=== PATIENT | female | born 1950 | race Caucasian/White ===

== ENCOUNTER 2025-04-14 08:22 | Outpatient (CLI) | payer OTHER, SELFPAY ==
--- NOTE | ~2025-04-14 | XR_ITS ---
Left Knee Technique: AP, lateral, and oblique views were obtained. Clinical History: Pain Findings: No fracture or dislocation is seen. Osseous alignment is anatomic. Joint spaces are preserv ed without degenerative or erosive change. Soft tissues are unremarkable. No joint effusion is seen. Impression: Unremarkable left knee radiographs. Reviewed, dictated and finalized at location . Impression: Unremarkable left knee radiographs.
--- OUTSIDE RECORDS SUMMARY | 2025-04-14 08:39 | XMS_ITS | Encounter Summary ---
Author Organization [facility] Address 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
--- OUTSIDE RECORDS SUMMARY | 2025-04-14 08:39 | XMS_ITS | Clinical Summary ---
Author Organization [facility] Address [address] [place] [address] Care Team Providers Care Estimator Printing Plate Making Name Role Phone Girish Breen MD Primary Care Provider [phone] Allergies Active Allergy Reactions Criticality Noted Date Comments Codeine Nausea and Vomiting Low 05/15/2012 Nabumetone Rash Low 05/15/2012 Medications AMITRIPTYLINE HCL (AMITRIPTYLINE ORAL)Indications:S creening for malignant neoplasm of the cervix,Routine gynecological examination,Screen ing for malignant neoplasm of the rectum Take by mouth. Active LISINOPRIL ORALIndications:Sc reening for malignant neoplasm of the cervix,Routine gynecological examination,Screen ing for malignant neoplasm of the rectum Take by mouth. Active METOPROLOL SUCCINATE ORALIndications:Sc reening for malignant neoplasm of the cervix,Routine gynecological examination,Screen ing for malignant neoplasm of the rectum Take by mouth. Active aspirin (VALENTINO) 81 mg Oral TabIndications:Scr eening for malignant neoplasm of the cervix,Routine gynecological examination,Screen ing for malignant neoplasm of the rectum Take by mouth. Active SUMATRIPTAN SUCCINATE (IMITREX ORAL)Indications:S creening for malignant neoplasm of the cervix,Routine gynecological examination,Screen ing for malignant neoplasm of the rectum Take by mouth. Active OTHERIndications:S creening for malignant neoplasm of the cervix,Routine gynecological examination,Screen ing for malignant neoplasm of the rectum Vit d, calcium Active methotrexate (RHEUMATREX) 2.5 mg Tablet 4 Active folic acid (FOLVITE) 1 mg tablet 4 Active traMADol (ULTRAM) 50 mg tablet 4 Active nortriptyline (PAMELOR) 25 mg capsule 4 Active simvastatin (ZOCOR) 40 mg tablet 4 Active ALPRAZolam (XANAX) 0.25 mg tablet 4 Active Active Problems Problem Noted Date Diagnosed Date Ruptured silicone breast implant 06/01/2014 Osteopenia 05/15/2012 Overview (05/15/2012): Finished 5 years of fosamax. 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 Gender Identity Not on file Sexual Orientation Not on file Occupation Industry Job Start Date Job End Date Not on file Not on file Not on file Not on file Last Filed Vital Signs Vital Sign Reading Time Taken Comments Blood Pressure 102/70 06/01/2014 9:02 AM CDT Pulse - - Temperature - - Respiratory Rate - - Oxygen Saturation - - Inhaled Oxygen Concentration - - Weight 51.3 kg (113 lb) 06/01/2014 9:02 AM CDT Height 144.8 cm (4' 9) 06/01/2014 9:02 AM CDT Body Mass Index 24.45 06/01/2014 9:02 AM CDT Plan of Treatment Health Maintenance Due Date Last Done Comments DTAP/TDAP/TD VACCINES (1 - Tdap) 1969 FIT-DNA Q 3 years 1995 Flex Sig/CT Colonography Q 5 years 1995 PNEUMOCOCCAL VACCINE 50+ YEA RS (1 of 1 - PCV) 2000 ZOSTER VACCINE (1 of 2) 2000 BREAST CANCER SCREENING 03/10/2015 03/10/20 14, 07/14/2013, 06/16/2013, Additional history exists OSTEOPOROSIS SCREENING 05/26/2015 05/26/2013, 2010 FIT/FOBT Q 1 year 06/01/2015 06/01/2014, , 05/15/2012 COLORECTAL SCREENING 01/18/2019 01/18/2009 Colorectal Cancer Screening 01/18/2019 RSV VACCINE (60+ or ) (1 - 1-dose 75+ series) 2025 INFLUENZA VACCINE (#1) 2025 Procedures Procedure Name Priority Date/Time Associated Diagnosis Comments POC OCCULT BLOOD, IMMUNO, QUAL, STOOL Routine 06/01/2014 10:16 AM CDT Screening for malignant neoplasm of the rectum MAMMO DIAGNOSTIC BILATERAL W OR WO CAD Routine 03/10/2014 Breast implant deflation, initial encounter Breast implant capsular contracture, initial encounter XR DEXA BONE DENSITY AXIAL 1 OR MORE SITES Routine 05/26/2013 Special screening for osteoporosis from Last 3 Months or Most Recently Relevant to Health Maintenance Results * POC OCCULT BLOOD, IMMUNO, QUAL, STOOL (06/01/2014 10:16 AM CDT) OCCULT BLOOD, IMMUNOASSAY STOOL1 POC Negative [facility] OCCULT BLOOD, IMMUNOASSAY STOOL2 POC [facility] OCCULT BLOOD, IMMUNOASSAY STOOL3 POC [facility] Stool specimen (specimen) 06/01/2014 10:16 AM CDT us Jessica Rowe MD POINT OF CARE TESTING Final Result [facility] * MAMMO DIGITAL DIAG BILAT (03/10/2014) Anatomical Region Laterality Modality Breast Bilateral Other us Paz Lala ENSEMBLE MEMBER MAMMO ORDERABLES Final Resu lt * (ABNORMAL) XR DEXA BONE DENSITY AXIAL 1 OR MORE SITES (05/26/2013) T-SCORE FEMUR (LEFT) [facility] T-SCORE FEMUR (RIGHT) [facility] T-SCORE FEMUR -0.8 >=-0.99 [facility] T-SCORE SPINE 0.0 >=-0.99 [facility] T-SCORE HIP (LEFT) [facility] T-SCORE HIP (RIGHT) [facility] T-SCORE HIP >=-0.99 [facility] Anatomical Region Laterality Modality Other 05/26/2013 us Jessica Rowe MD DIAGNOSTIC IMAGING ORDERABLE S Final Result from Last 3 Months or Most Recently Relevant to Health Maintenance Insurance [facility] O Care Teams Estimator Printing Plate Making Relationship Specialty Start Date End Date Girish Breen MD PCP - General 09/06/15
--- OUTSIDE RECORDS SUMMARY | 2025-04-14 08:39 | XMS_ITS | Encounter Summary ---
Author Organization [facility] Address 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
--- OUTSIDE RECORDS SUMMARY | 2025-04-14 08:39 | XMS_ITS | Encounter Summary ---
Author Organization [facility] Address 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
--- OUTSIDE RECORDS SUMMARY | 2025-04-14 08:39 | XMS_ITS | Encounter Summary ---
Author Organization [facility] Address 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
--- OUTSIDE RECORDS SUMMARY | 2025-04-14 08:39 | XMS_ITS | Patient Health Record ---
Author Organization [facility] Address [address] [place], [place] [id number] Care Team Providers Care Dairy Husbandry Worker Name Role Phone MEL RICHEY Unavailable [phone] Nadia Witt Unavailable Unavailable Reason For Referral No Information Medications Medication SIG (Take, Route, Frequency, Duration) Notes Start Date End Date Status trazodone hydrochloride 50 MG Oral Tablet ORAL trazodone hydrochloride 50 MG Oral TabletOriginal Medicationtrazodone hydrochloride 50 MG Oral Tablet *Reorder from [employer] for eRx and Interaction Alerts* 07/29/2020 Active pantoprazole 40 MG Delayed Release Oral Tablet [Protonix] ORAL pantoprazole 40 MG Delayed Release Oral Tablet [Protonix]Original Medicationpantoprazole 40 MG Delayed Release Oral Tablet [Protonix] *Reorder from [employer] for eRx and Interaction Alerts* 07/29/2020 Active sumatriptan 25 MG Oral Tablet [Imitrex] ORAL sumatriptan 25 MG Oral Tablet [Imitrex]Original Medicationsumatriptan 25 MG Oral Tablet [Imitrex] *Reorder from [employer] for eRx and Interaction Alerts* 07/29/2020 Active Simvastatin 40 MG Oral Tablet ORAL simvastatin 40 MG Oral TabletOriginal Medicationsimvastatin 40 MG Oral Tablet *Reorder from [employer] for eRx and Interaction Alerts* 07/29/2020 Active Metoprolol Tartrate 25 MG Oral Tablet ORAL metoprolol tartrate 25 MG Oral TabletOriginal Medicationmetoprolol tartrate 25 MG Oral Tablet *Reorder from [employer] for eRx and Interaction Alerts* 07/29/2020 Active Folic Acid 1 MG Oral Tablet ORAL folic acid 1 MG Oral TabletOriginal Medicationfolic acid 1 MG Oral Tablet *Reorder from [employer] for eRx and Interaction Alerts* 07/29/2020 Active Lisinopril 5 MG Oral Tablet ORAL lisinopril 5 MG Oral TabletOriginal Medicationlisinopril 5 MG Oral Tablet *Reorder from [facility] for eRx and Interaction Alerts* 07/29/2020 Active Aspirin 81 MG Oral aspirin 81 MG Ch ewable TabletOriginal Medicationaspirin 81 MG Chewable Tablet 07/29/2020 Active Plan Of Treatment No Information Insurance Providers Payer Name Payer Address Payer Phone Subscriber Number Group Number Insured Name Patient Relationship to Insured Coverage Start Date Coverage End Date [employer] [address] [place] [address] [id number] YOKO MÁRQUEZ Self - patient is the insured
--- OUTSIDE RECORDS SUMMARY | 2025-04-14 08:39 | XMS_ITS | Encounter Summary ---
Author Organization [facility] Address 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
--- OUTSIDE RECORDS SUMMARY | 2025-04-14 08:40 | XMS_ITS | Encounter Summary ---
Author Organization [facility] Address 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
--- OUTSIDE RECORDS SUMMARY | 2025-04-14 08:40 | XMS_ITS | Encounter Summary ---
Author Organization [facility] Address 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
--- OUTSIDE RECORDS SUMMARY | 2025-04-14 08:40 | XMS_ITS | Encounter Summary ---
Author Organization [facility] Address [address] [place] [address] Care Team Providers Care Interior Assemblies Developer Prover Name Role Phone Girish Breen MD Primary Care Provider [phone] Encounter Details Date Type Department Care Team (Late st Contact Info) Description 04/22/1999 Outpatient Historical [facility] Salvador Padilla MD [address] [place] [address] [place] [id number] Internal hemorrhoids without mention of complication (Primary Dx) Social History Tobacco Use Types Packs/Day Years Used Date Smoking Tobacco: Never Assessed Comments Unknown Sex and Gender Information Value Date Recorded Sex Assigned at Not on file 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
--- OUTSIDE RECORDS SUMMARY | 2025-04-14 08:40 | XMS_ITS | Encounter Summary ---
Author Organization [facility] Address 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
--- OUTSIDE RECORDS SUMMARY | 2025-04-14 08:40 | XMS_ITS | Encounter Summary ---
Author Organization [facility] Address [address] [place] [address] Care Team Providers Care Business Ethics Professor Name Role Phone Girish Breen MD Primary Care Provider [phone] Encounter Details Date Type Department Care Team (Latest Contact Info) Description 09/05/2000 Outpatient Historical HIS [facility] RAFAEL Padilla, Salvador Harry MD [address] [place] [address] Persistent vomiting (Primary Dx) Social History Tobacco Use Types Packs/Day Years Used Date Smoking Tobacco: Never Assessed Comments Unknown Sex and Gender Information Value Date Recorded Sex Assigned at Not on file 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
--- OUTSIDE RECORDS SUMMARY | 2025-04-14 08:40 | XMS_ITS | Encounter Summary ---
Author Organization [facility] Address 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
--- OUTSIDE RECORDS SUMMARY | 2025-04-14 08:40 | XMS_ITS | Clinical Summary ---
Author Organization [facility] Address [address] [address] Care Team Providers [facility] [employer] Name Role Phone Toño Vivas MD Primary Care Provider [phone] Allergies Active Allergy Reactions Criticality Noted Date Comments Codeine Nausea only,Vomiting,Nausea & Vomiting Low 05/15/2012 Reaction: Nausea, Vomiting, Infliximab Rash High Reaction: Rash, Nabumetone Rash Reaction: Rash, Tramadol Headache Low 04/24/2017 Medications aspirin (BABY ASPIRIN) 81 mg chewable tablet chew 1 tablet (81MG) by oral route every day 0 3 Active folic acid (FOLVITE) 1 mg tablet take 1 tablet by oral route every day 30 0 4 Active vitamin B complex with vitamin C tabletIndications :Vitamin Deficiency Prevention Take 1 tablet by mouth daily Active [id number]-[id number]-zinc-co a-[id number]-[id number] 600 mg calcium- 800 unit-40 mg tablet,chewable Take by mouth Active cholecalciferol (VITAMIN D-3) 3,000 unit tablet Take 1 tablet (3,000 Units total) by mouth daily Active multivitamin tabletIndications :Vitamin Deficiency Prevention Take 1 tablet by mouth Active rimegepant (Nurtec ODT) tablet,disintegra ting Take 1 tablet (75 mg total) by mouth daily as needed (take as needed for COOL) 4 tablet 3 Active atorvastatin (LIPITOR) 40 mg tabletIndications :Coronary artery disease of [place] artery of [place] heart with stable angina pectoris TAKE 1 TABLET BY MOUTH DAILY (TO REPLACE SIMVASTATIN) 90 tablet [address] (PROTONIX) 40 mg EC tabletIndications :Gastroesophageal reflux disease without esophagitis Take 1 tablet (40 mg total) by mouth daily 90 tablet 2 4 Active metoprolol XL (TOPROL-XL) 25 mg extended release tabletIndications :Essential hypertension TAKE 1 TABLET (25 MG TOTAL) BY MOUTH DAILY. 90 tablet 2 4 Active nitroglycerin (NITROSTAT) 0.4 mg SL tabletIndications :Atherosclerosis of coronary artery of [place] heart without angina pectoris, unspecified vessel or lesion type 1 tablet under the tongue every 5 minutes as needed for chest pain on third dose report to ER 25 tablet 3 5 Active lisinopriL (PRINIVIL,ZESTRIL ) 5 mg tabletIndications :Essential hypertension Take 1 tablet (5 mg total) by mouth daily 90 tablet 3 5 Active Active Problems Problem Noted Date Diagnosed Date Asymptomatic reticular veins 1 mm to 3 mm in wilda meter 09/18/2023 Assessment & Plan (09/18/2023 9:09 AM SKEIN SPOOLER): Small clusters of reticular veins near the ankles, had 1 episode of bleeding a couple months ago. Discussed management of reticular veins which is primarily sclerotherapy, I have recommended surveillance, if she continues to have episodes of bleeding would recommend referral to Dr. James for sclerotherapy. Can follow-up as needed. History of COVID-19 11/02/2022 History of rheumatoid arthritis 05/08/2021 Coronary artery disease of n ative artery of [place] heart with stable angina pectoris ([facility]) 09/24/2019 Body mass index (BMI) 22.0-22.9, adult 7 Assessment & Plan (05/21/2017 8:10 AM CDT): BMI Follow-up includes: nutrition counseling, exercise counseling and education provided. Medicare annual wellness visit, subsequent 05/21 Assessment & Plan (03/25/2018 10:58 AM CDT): A Medicare Annual Wellness Visit (AWV) was done today as well. The patient filled out a depression screen, functional assessment screen, health risk assessment, and other physicians list. All the elements of this exam were completed as outlined by CMS. Please note that the documentation of this is split between paper documentation and this electronic record. Assessment & Plan (05/21/2017 8:20 AM CDT): A Medicare Annual Wellness Visit (AWV) was done today as well. The patient filled out a depression screen, functional assessment screen, health risk assessment, and other physicians list. All the elements of this exam were completed as outlined by CMS. Please note that the documentation of this is split between paper documentation and this electronic record. Essential hypertension, benign 01/30/2014 Overview (09/18/2023): Assessment & Plan (09/18/2023 9:09 AM SKEIN SPOOLER): Stable continue lisinopril 5 mg. Assessment & Plan (05/21/2017 8:36 AM CDT): Hypertension is improving with treatment. Dietary sodium restriction. Blood pressure will be reassessed in 3 months. Osteoporosis 01/30/2014 Overview (12/21/2016): OSTEOPOROSIS NOS Assessment & Plan (05/21/2017 8:51 AM CDT): Continue follow at this time no new issues Hyperlipidemia LDL goal <70 01/30/2014 Overview (09/18/2023): Assessment & Plan (09/18/2023 9:10 AM SKEIN SPOOLER): Stable continue Lipitor 40 mg. Assessment & Plan (03/25/2018 11:10 AM CDT): Recheck a fasting lipid profile today Assessment & Plan (05/21/2017 8:36 AM CDT): We will recheck a fasting lipid profile today continues on simvastatin Resolved Problems Problem Noted Date Diagnosed Date Resolved Date MCKEE (dyspnea on exertion) 04/06/2024 Atypical chest pain 02/15/2023 07/24/20 Palpitations 11/02/2022 01/27/2025 Bone disorder 05/08/2021 05/08/2021 Bilateral lower extremity edema 09/24/2019 07/24/2023 History of GI bleed 05/13/2019 07/24/20 23 BMI 21.0-21.9, adult 03/25/2018 021 Assessment & Plan (03/25/2018 10:54 AM CDT): BMI Follow-up includes: nutrition counseling, exercise counseling and education provided. Patient encounter status 05/18/201606/2021 Overview (12/20/2016): Annual physical exam Gastric ulcer 05/20/2014 07/24/2023 Overview (12/20/2016): Stomach ulcer Chemical colitis 05/20/2014 10/26/2020 Overview (12/20/2016): Chemically-induced colitis Arthritis 05/20/2014 01/27/2024 Overview (12/20/2016): Arthritis Cardiac disease 05/20/2014 10/26/2020 Overview (12/22/2016): Heart disease Atherosclerosis of coronary artery 01/30/2014 07/24/2023 Overview (12/20/2016): CAD (coronary artery disease) Assessment & Plan (03/25/2018 11:10 AM CDT): No chest pain currently continues to follow Dr. Rosaura Meneses, We will follow at this point Assessment & Plan (05/21/2017 8:35 AM CDT): No current chest pain she is doing very well at this time we can follow her Migraine 01/30/2014 07/24/2023 Overview (12/21/2016): Migraine Disorder of joint 01/06/2014 10/26/2020 Overview (12/21/2016): Arthropathy Psoriasis 06/05/2012 01/27/2024 Overview (12/20/2016): Psoriasis Drug indicated 06/05/2012 10/26/2020 Overview (12/20/2016): LONG-TERM USE MEDS NEC Encounters Date Type Department Care Team Description 02/05/2025 ACO Clinical Pharmacist [facility] Accountable Care Organization [address] [place] [id number] Sydney Ambriz RPh 01/27/2025 9:00 AM CDT Lab [facility] Medical Office [address] [place] [address] [address] [place] [address] Hyperlipidemia LDL goal <70 01/27/2025 8:00 AM CDT Office Visit [facility] Medical [facility] Family Medicine at [address] [place] [address] Toño Vivas MD Medicare annual wellness visit, subsequent (Primary Dx); Osteopenia of lumbar spine; Hyperlipidemia LDL goal <70; Essential hypertension, benign; Breast cancer screening by mammogram; Gastroesophageal reflux disease, unspecified whether esophagitis present; Coronary artery disease of [place] artery of [place] heart with stable angina pectoris ([facility]) (HCC); History of rheumatoid arthritis; Chronic insomnia 01/27/2025 Results Follow-Up [facility] Family Medicine at [address] [place] [address] Antonella Villanueva PA Comprehensive metabolic panel, CBC with auto differential, Differential, auto, eGFR from Last 3 Months Immunizations Immunization Administration Dates Next Due Influenza, Quadrivalent, Hig h Dose, Preservative Free, Intrr 06/13/2023,06/27/2021,05/16/2020 Influenza, Quadrivalent, Spl it, Preservative Free, Intramuscular 08/18/2015 Influenza, Trivalent, High D ose, Split, Preservative Free, Intramuscular 06/09/2024,06/27/2022,07/30/2019 Influenza, Trivalent, IM (MDV) 06/17/2013,2010 Influenza, Trivalent, Recomb inant, Egg Free, Preservative Free, Antibiotic Free, IM (FLUBLOK) 08/17/2014 Influenza, Unspecified 06/16/2022,2021(Deferred: Patient decision),06/16/2017(Deferred: Patient decision) Pfizer SARS-CoV-2 Monovalent Vaccination (12+ Yrs) PURPLE 12/20/2020,11/28/2020 Pneumococcal Conjugate PCV 13 05/21/2017 Pneumococcal Polysaccharide PPV23 05/13/2019 Td, adsorbed 09/16/2009 Surgical History Surgery Date Site/Laterality Comments BREAST BIOPSY Bilateral breast biopsy OTHER SURGICAL HISTORY D&C TOTAL ABDOMINAL HYSTERECTOMY Hysterectomy, total LAPAROSCOPICALLY ASSISTED VAGINAL HYSTERECTOMY lavh OTHER SURGICAL HISTORY silicone implants removed OTHER SURGICAL HISTORY salene implants removed AUGMENTATION MAMMAPLASTY 1983 and 1999 removed 2013 Silicone ruptured in left breast Medical History Medical History Date Comments Cardiovascular disease Coronary artery disease Hx Other Medical Headache, migra ine Hypertension Hypertension Essential (primary) hypertension Hypertension - (Added by TW Conv) Fibrocystic breast Anxiety Hyperlipidemia Family History Medical History Relation Name Comments Colon cancer Father Cancer, colon; Diabetes Father Heart attack Father Heart disease Father Stroke Father Stroke; Cause o f : Stroke Aneurysm Mother Breast cancer Mother Cancer, breast ; Hyperlipidemia Sister Migue Hypertension Sister Migue Endometrial cancer Neg Hx Ovarian cancer Neg Hx Thyroid cancer Neg Hx Relation Name Status Comments Father (Age 85) Mother (Age 54) Sister Migue Alive Social History Tobacco Use Types Packs/Day Years Used Date Smoking Tobacco: Never Smokeless Tobacco: Never Tobacco Cessation:Counseling Given: Not Answered Alcohol Use Standard Drinks/Week Comments Yes 1 (1 standard drink = 0.6 oz pur e alcohol) one glass monthly AUDIT-C Answer Date Recorded Q1: How often do you have a drink containing alc ohol? Monthly or less 04/24/2022 Q2: How many drinks containi ng alcohol do you have on a typical day when you are drinking? 1 or 2 04/24/2022 Q3: How often do you have si x or more drinks on one occasion? Never 04/24/2022 PHQ-2 Answer Date Recorded PHQ-2 Total Score (If total score is 3 or more points, staff should administer the PHQ-9) 0 01/27/2025 Comments No Sex and Gender Information Value Date Recorded Sex Assigned at Not on file Legal Sex Female 1:54 AM SKEIN SPOOLER Gender Identity Not on file Sexual Orientation Not on file Obstetrics History Para Term AB IAB SAB Ectopic Multiple Livin g Live Births 1 1 1 Date Outcome GA Total Labor Labor/2nd/3rd Weight Sex Type Anes PTL Kira A1 A5 Name Clin Term Last Filed Vital Signs Vital Sign Reading Time Taken Comments Blood Pressure 130/82 01/27/2025 8:54 AM CDT Pulse 59 01/27/2025 8:07 AM CDT Temperature 36.8 C (98.3 F) 01/27/2025 8:07 AM CDT Respiratory Rate 16 08/30/2023 9:31 AM SKEIN SPOOLER Oxygen Saturation 96% 01/27/2025 8:07 AM CDT Inhaled Oxygen Concentration - - Weight 49.4 kg (109 lb) 01/27/2025 8:07 AM CDT Height 142.2 cm (4' 8) 01/27/2025 8:07 AM CDT Body Mass Index 24.44 01/27/2025 8:07 AM CDT Plan of Treatment Health Maintenance Due Date Last Done Comments Hepatitis B Screening 1968 Zoster Vaccine (1 of 2) 2000 DTaP/Tdap/Td Vaccine (1 - Tdap) 09/17/2009 0 Covid-19 Vaccine (3 - 2023-2 5 season) 2024 12/20/2020, 11/28/2020 Osteoporosis Screening-Bone Density Scan 07/20/2024 07/20/2022, 05/26/2020, 05/26/2013, Additional history exists Influenza Vaccine (#1) 2025 , 06/13/2023, 06/27/2022, Additional history exists Depression Screening 01/27/2026 01/27/2025, 01/27/2024, 10/31/2022, Additional history exists Fall Risk Assessment 01/27/2026 01/27/2025, 01/27/2024, 10/31/2022, Additional history exists Well Visit 65+ 01/27/2026 01/27/2025, 01/14, 04/24/2022, Additional history exists Colon Cancer Screening-Colonoscopy 01/29/2029 01/29/2019, 07/28/2014, 05/21/2014 Hepatitis C Screening Completed 03/22/2016 Colon Cancer Screening-CT Colonography Discontinued 01/29/2019, 07/28/2014, 05/21/2014 Colon Cancer Screening-DNA Stool Discontinued 01/29/2019, 07/28/2014, 05/21/2014 Colon Cancer Screening-FIT Discontinued 01/29, 07/28/2014, 05/21/2014 Colon Cancer Screening-Sigmoidoscopy Discontinued 01/29/2019, 07/28/2014, 05/21/2014 Pneumococcal vaccine 65+ Completed 05/13/2019, 01/2017 Breast Cancer Screening-Mammogram Discontinued 06/04/2023, 05/31/2022, 05/30/2021, Additional history exists Procedures Procedure Name Priority Date/Time Associated Diagnosis Comments EGFR Routine 01/27/2025 9:07 AM CDT Hyperlipidemia LDL goal <70 DIFFERENTIAL AUTO Routine 01/27/2025 9:0 7 AM CDT Hyperlipidemia LDL goal <70 CBC WITH AUTO DIFFERENTIAL Routine 01/27/2025 9:07 AM CDT Hyperlipidemia LDL goal <70 COMPREHENSIVE METABOLIC PANEL Routine 01/27/2025 9:07 AM CDT Hyperlipidemia LDL goal <70 SCREENING MAMMOGRAM BILATERAL W DENIS Schedule Routine, Read Routine (OP Routine) 06/04/2023 12:09 PM CDT Screening mammogram, encounter for DEXA AXIAL SKELETON BONE DENSITY 1 OR MORE SITES Schedule Routine, Read Routine (OP Routine) 07/20/2022 10:08 AM CDT Osteoporosis, unspecified osteoporosis type, unspecified pathological fracture presence COLONOSCOPY Routine 01/29/2019 HEPATITIS C ANTIBODY Routine 03/22/2016 9:00 AM CDT from Last 3 Months or Most Recently Relevant to Health Maintenance Results * eGFR (01/27/2025 9:07 AM CDT) [facility] eGFR 82 >=60 mL/min/1. 73 m2 Comment: Interpretive Data Reference Interval Normal >/= 90 mL/min/1.73m2 Mildly decreased* 60 - 89 mL/min/1.73m2 Mildly to moderately decreased 45 - 59 mL/min/1.73m2 Moderately to severely decreased 30 - 44 mL/min/1.73m2 Severely decreased 15 - 29 mL/min/1.73m2 Kidney Failure < 15 mL/min/1.73m2 *Relative to young adult level Estimated glomerular filtration rate is determined by the 2020 CKD-EPI equation recommended by the National Kidney Foundation (A Unifying Approach to GFR Estimation: Recommendations of the NKF-ASK Task Force on Reassessing the Inclusion of Race in Diagnosing Kidney Disease, JASN 2020). The CKD-EPI equation should not be used for patients with unstable renal function and has not been validated in children and those over 70. Current interpretive data was last reviewed 2021. Blood 01/27/2025 9:07 AM CDT 01/27/2025 12:19 PM CDT Toño Vivas MD LAB BLOOD ORDERABLES Final Re sult [facility] [address] [facility] Department [place] [address] * Differential, auto (01/27/2025 9:07 AM CDT) [facility] Neutrophil abs 2.96 1.50 - 6.50 K/cumm Imm gran abs 0.01 0.00 - 0.10 K/cumm [facility] Lymphocyte abs 1.47 0.80 - 3.30 K/cumm [facility] Monocyte abs 0.73 0.20 - 0.80 K/cumm [facility] Eosinophil abs 0.14 0.00 - 0.50 K/cumm [facility] Basophil abs 0.06 0.00 - 0.10 K/cumm [facility] Neutrophil pct 55.1 % [facility] Comment: Interpretive Data Percent cell count reference ranges are not reported, since discordance with absolute values may lead to misinterpretation of CBC data. Current Interpretive Data was last revised on 2017. Imm gran pct 0.2 % [facility] Comment: Interpretive Data Percent cell count reference ranges are not reported, since discordance with absolute values may lead to misinterpretation of CBC data. Current Interpretive Data was last revised on 2017. Lymphocyte pct 27.4 % [facility] Comment: Interpretive Data Percent cell count reference ranges are not reported, since discordance with absolute values may lead to misinterpretation of CBC data. Current Interpretive Data was last revised on 2017. Monocyte pct 13.6 % [facility] Comment: Interpretive Data Percent cell count reference ranges are not reported, since discordance with absolute values may lead to misinterpretation of CBC data. Current Interpretive Data was last revised on 2017. Eosinophil pct 2.6 % [facility] Comment: Interpretive Data Percent cell count reference ranges are not reported, since discordance with absolute values may lead to misinterpretation of CBC data. Current Interpretive Data was last revised on 2017. Basophil pct 1.1 % [facility] Comment: Interpretive Data Percent cell count reference ranges are not reported, since discordance with absolute values may lead to misinterpretation of CBC data. Current Interpretive Data was last revised on 2017. Blood 01/27/2025 9:07 AM CDT 01/27/2025 12:19 PM CDT us Toño Vivas MD LAB BLOOD ORDERABLES Final Re sult [facility] [address] [facility] Department [place] [address] * (ABNORMAL) CBC with auto differential (01/27/2025 9:07 AM CDT) WBC 5.37 3.80 - 9.90 K/cumm Hgb 14.2 11.9 - 15.5 g/dL [facility] Hct 44.0 35.6 - 45.5 % [facility] Plt 212 150 - 400 K/cumm [facility] MPV 10.2 9.1 - 12.3 fL [facility] RBC 4.47 3.90 - 5.20 M/cumm [facility] MCV 98.4(H) 81.3 - 96.4 fL [facility] MCH 31.8 27.1 - 33.3 pg [facility] MCHC 32.3 32.3 - 35.7 g/dL [facility] RDW CV 12.8 11.1 - 14.9 % [facility] RDW SD 46.0 35.7 - 48.1 fL [facility] NRBC abs 0.00 0.00 - 0.01 K/cumm [facility] Blood 01/27/2025 9:07 AM CDT 01/27/2025 12:19 PM CDT Toño Vivas MD LAB BLOOD ORDERABLES Final Re sult [facility] [address] [facility] Department [place] [address] * Comprehensive metabolic panel (01/27/2025 9:07 AM CDT) Sodium 142 135 - 145 mmol/L Potassium, pl 4.4 3.3 - 4.9 mmol/L [facility] Chloride 105 97 - 110 mmol/L [facility] CO2 30 22 - 32 mmol/L [facility] Anion gap 7 2 - 15 mmol/L [facility] BUN 20 6 - 25 mg/dL [facility] Creatinine 0.76 0.60 - 1.10 mg/dL [facility] Glucose 99 70 - 199 mg/dL [facility] Comment: Interpretive Data Fasting glucose >/= 126 mg/dl is diagnostic for diabetes. Fasting is defined as no caloric intake for at least 8 hours. Fasting glucose between 100 mg/dl to 125 mg/dl is diagnostic of prediabetes. In a patient with classic symptoms of hyperglycemia or hyperglycemic crisis, a random glucose >/= 200 mg/dl is diagnostic for diabetes. In the absence of unequivocal hyperglycemia, results should be confirmed by repeat testing. The classification and Diagnosis of Diabetes Diabetes Care 202; 46: S19-S40. Current interpretive data was last revised 2022. Calcium 9.6 8.5 - 10.3 mg/dL [facility] Bilirubin, total 0.5 0.1 - 1.2 mg/dL [facility] Protein, pl 6.9 6.5 - 8.5 g/dL [facility] Albumin 4.1 3.5 - 5.0 g/dL [facility] Alk phos 77 40 - 130 Units/L [facility] ALT 20 7 - 45 Units/L [facility] AST 28 10 - 45 Units/L [facility] Blood 01/27/2025 9:07 AM CDT 01/27/2025 12:19 PM CDT Toño Vivas MD LAB BLOOD ORDERABLES Final Re sult [facility] [address] [facility] Department [place] [address] * Screening Mammogram Bilateral W Denis (06/04/2023 12:09 PM CDT) Anatomical Region Laterality Modality Breast Bilateral Mammography 06/04/2023 1:17 PM CDT Impressions 06/04/2023 1:17 PM CDT No evidence of malignancy in either breast. FINAL ASSESSMENT: BI-RADS Category 2: Benign. RECOMMENDATION: Recommend return for annual screening mammogram in 12 months. Electronically signed by: Muna Ramirez M.D. Narrative 06/04/2023 1:17 PM CDT EXAMINATION: BILATERAL SCREENING MAMMOGRAM COMPARISON: Multiple prior studies, most recently 05/31/2022 and dating back to 07/14/2013. TECHNIQUE: Full-field 2D and digital breast tomosynthesis (DBT) images were obtained. CAD was utilized. BREAST PARENCHYMAL COMPOSITION: The breasts are extremely dense, which lowers the sensitivity of mammography. FINDINGS: There is no suspicious mass, calcification, or distortion in either breast. There has been no significant interval change from the prior study. Bilateral stable diffuse benign calcifications are seen. Self Screening Mammogram IMG MAMMO PROCEDURES Fi nal Result * Dexa Axial Skeleton Bone Density 1 or 2 Site (07/20/2022 10:08 AM CDT) Anatomical Region Laterality Modality Body N/A Other 07/20/2022 10:1 3 AM CDT Impressions 07/20/2022 10:13 AM CDT Bone mineral density of the spine falls within normal range, bone mineral density of the left hip falls within osteopenia range. In comparison to previous examination there is a decrease bone mineral density of the spine and increased bone mineral density of the left hip. Electronically signed by: Daniel Jean 07/20/2022 10:13 AM CDT Examination: Bone densitometry of the lumbar spine and the left hip Order Date: 07/20/2022 10:00 AM History: Osteoporosis screening. Postmenopausal Comparison: 05/26/2020 Findings: The bone densitometry of the L1-L4 region, the left femoral neck and the total left hip was calculated using dual-energy x-ray absorptiometry. Summary: Bone mineral density (BMD) of the lumbar spine (L1-4): T-score -0.6; 94% of normal Bone mineral density (BMD) of the total left hip: T-score -1.3; 83% of normal Bone mineral density (BMD) of the left femoral neck: T-score -2.3; 70% of normal Bone mineral density of the spine falls within normal range, bone mineral density of the left hip falls within osteopenia range. In comparison to previous examination there is -1.8% change in spine findings suggestive of decrease bone mineral density and 0.2% change in left hip findings suggestive of increased bone mineral density. Procedure Note Muna Ramirez MD - 07/20/2022 Examination: Bone densitometry of the lumbar spine and the left hip Order Date: 07/20/2022 10:00 AM History: Osteoporosis screening. Postmenopausal Comparison: 05/26/2020 Findings: The bone densitometry of the L1-L4 region, the left femoral neck and the total left hip was calculated using dual-energy x-ray absorptiometry. Summary: Bone mineral density (BMD) of the lumbar spine (L1-4): T-score -0.6; 94% of normal Bone mineral density (BMD) of the total left hip: T-score -1.3; 83% of normal Bone mineral density (BMD) of the left femoral neck: T-score -2.3; 70% of normal Bone mineral density of the spine falls within normal range, bone mineral density of the left hip falls within osteopenia range. In comparison to previous examination there is -1.8% change in spine findings suggestive of decrease bone mineral density and 0.2% change in left hip findings suggestive of increased bone mineral density. IMPRESSION: Bone mineral density of the spine falls within normal range, bone mineral density of the left hip falls within osteopenia range. In comparison to previous examination there is a decrease bone mineral density of the spine and increased bone mineral density of the left hip. Electronically signed by: Muna Ramirez M.D. Nadia Witt MD IMG DXA PROCEDURES Final Res ult * Colonoscopy (01/29/2019) Anatomical Region Laterality Modality Other Historical Provider MD ENDOSCOPY PROCEDURES Desirae l Result * Hepatitis C antibody (03/22/2016 9:00 AM CDT) SIGNAL TO CUT-OFF 0.03 <1.00 [facility]OR[facility] RESULTS Comment: [facility] [employer] [facility] [address] [place] [address] Director: RACHEL LEONE DO,MPH Hep C Ab NON-REACT ELEANOR NON-REACT ELEANOR [facility] HISTORICAL RESULTS 03/22/2016 9:00 AM CDT Dede SALAZAR LAB MICROBIOLOGY - GENERAL ORDERABLES Final Result [facility] HISTORICAL RESULTS from Last 3 Months or Most Recently Relevant to Health Maintenance Insurance [employer] ADV[employer]AGE CHOICE PPO [employer] ADV[employer] CHOICE PPO [employer] CHOICE PPO Care Teams [employer] Relationship Specialty Start Date End Date Toño Vivas MD PCP - General Family Medicine 07/24/23
--- OUTSIDE RECORDS SUMMARY | 2025-04-14 08:40 | XMS_ITS | Encounter Summary ---
Author Organization [facility] Address [address] [place] [address] Care Team Providers Care Building Construction Inspector Name Role Phone Girish Breen MD Primary Care Provider [phone] Encounter Details Date Type Department Care Team (Latest Contact Info) Description 01/05/2000 Outpatient Historical HIS [facility] RAFAEL Herbert, [place] [address] [facility] [place] [id number] Lump or mass in breast (Primary Dx) Social History Tobacco Use Types Packs/Day Years Used Date Smoking Tobacco: Never Assessed Comments Unknown Sex and Gender Information Value Date Recorded Sex Assigned at Not on file Legal Sex Female 4:38 AM PIER HAND Gender Identity Not on file Sexual Orientation Not on file documented as of this encounter Plan of Treatment Not on file documented as of this encounter Visit Diagnoses Diagnosis Lump or mass in breast- Primary documented in this encounter Care Teams Building Construction Inspector Relationship Specialty Start Date End Date Girish Breen MD PCP - General 09/06/15 documented as of this encounter
--- OUTSIDE RECORDS SUMMARY | 2025-04-14 08:40 | XMS_ITS | Referral Summary ---
Author Organization [facility] Address [address] [facility] [place] [address] Care Team Providers Care Frame Hand Name Role Phone Toño Vivas MD Primary Care Provider [phone] Encounters Date Type Department Care Team Description 02/05/2025 ACO Clinical Pharmacist [facility] Care Organization [address] [place] [address] [place] Ambriz [facility] 01/27/2025 Results Follow-Up [facility] at [address] [place] [address] Antonella Villanueva PA Comprehensive metabolic panel, CBC with auto differential, Differential, auto, eGFR 01/27/2025 9:[address] [facility] Medical Office [address]ld[address] [place] [address] [address] [place] [address] Hyperlipidemia LDL goal <70 01/27/2025 8:00 AM CDT Office Visit [facility] at [address] [place] [address] Toño Vivas MD Medicare annual wellness visit, subsequent (Primary Dx); Osteopenia of lumbar spine; Hyperlipidemia LDL goal <70; Essential hypertension, benign; Breast cancer screening by mammogram; Gastroesophageal reflux disease, unspecified whether esophagitis present; Coronary artery disease of [place] artery of [place] heart with stable angina pectoris (CMS/HCC) (HCC); History of rheumatoid arthritis; Chronic insomnia from Last 3 Months Allergies Active Allergy Reactions Criticality Noted Date [...] Take 1 tablet by mouth daily Active Ny-W1-tvo-zinc-co q-aopx-nyeki 600 mg calcium- 800 unit-40 mg tablet,chewable [...] 40 mg tabletIndications :Coronary artery disease of [place] artery of [place] heart with stable angina pectoris TAKE 1 [...] SL tabletIndications :Atherosclerosis of coronary artery of [place] heart without angina pectoris, unspecified vessel or [...] 09/18/2023 Assessment & Plan (09/18/2023 9:09 AM SHIPYARD SUPERVISOR): Small clusters of reticular veins near the [...] artery disease of n ative artery of [place] heart with stable angina pectoris ([facility]) 09/24/2019 Body mass index (BMI) 22.0-22.9, adult [...] this exam were completed as outlined by [facility]. Please note that the documentation of this is split between paper documentation and this electronic record. Assessment & Plan (05/21/2017 8:20 AM CDT): A Medicare Annual Wellness Visit (AWV) was done today as well. The patient filled out a depression screen, functional assessment screen, health risk assessment, and other physicians list. All the elements of this exam were completed as outlined by [facility]. Please note that the documentation of this is split between paper documentation and this electronic record. Essential hypertension, benign 01/30/2014 Overview (09/18/2023): Assessment & Plan (09/18/2023 9:09 AM SHIPYARD SUPERVISOR): Stable continue lisinopril 5 mg. Assessment & Plan (05/21/2017 8:36 AM CDT): Hypertension is improving with treatment. Dietary sodium restriction. Blood pressure will be reassessed in 3 months. Osteoporosis 01/30/2014 Overview (12/21/2016): OSTEOPOROSIS NOS Assessment & Plan (05/21/2017 8:51 AM CDT): Continue follow at this time no new issues Hyperlipidemia LDL goal <70 01/30/2014 Overview (09/18/2023): Assessment & Plan (09/18/2023 9:10 AM SHIPYARD SUPERVISOR): Stable continue Lipitor 40 mg. Assessment & Plan (03/25/2018 11:10 AM CDT): Recheck a fasting lipid profile today Assessment & Plan (05/21/2017 8:36 AM CDT): We will recheck a fasting lipid profile today continues on simvastatin Resolved Problems Problem Noted Date Diagnosed Date Resolved Date MCKEE (dyspnea on exertion) 04/06/2024 Atypical chest pain 02/15/2023 07/24/20 23 Palpitations 11/02/2022 01/27/2025 Bone disorder 05/08/2021 05/08/2021 [...] 10/26/2020 Overview (12/20/2016): LONG-TERM USE MEDS NEC Immunizations Immunization Administration Dates Next Due Influenza, [...] Pneumococcal Polysaccharide PPV23 05/13/2019 Td, adsorbed 09/16/2009 Social History Tobacco Use Types Packs/Day Years [...] on file Legal Sex Female 1:54 AM SHIPYARD SUPERVISOR Gender Identity Not on file Sexual Orientation Not on file Last Filed Vital Signs Vital Sign Reading Time Taken Comments Blood Pressure 130/82 01/27/2025 8:54 AM CDT Pulse 59 01/27/2025 8:07 AM CDT Temperature 36.8 C (98.3 F) 01/27/2025 8:07 AM CDT Respiratory Rate 16 08/30/2023 9:31 AM SHIPYARD SUPERVISOR Oxygen Saturation 96% 01/27/2025 8:07 AM CDT Inhaled Oxygen Concentration - - Weight 49.4 kg (109 lb) 01/27/2025 8:07 AM CDT Height 142.2 cm (4' 8) 01/27/2025 8:07 AM CDT Body Mass Index 24.44 01/27/2025 8:07 AM CDT Plan of Treatment Not on file Procedures Procedure Name Priority Date/Time Associated Diagnosis [...] Results * eGFR (01/27/2025 9:07 AM CDT) eGFR 82 >=60 mL/min/1. 73 m2 Comment: [...] of Race in Diagnosing Kidney Disease, JASN 202). The CKD-EPI equation should not be used for patients with unstable renal function and has not been validated in children and those over 70. Current interpretive data was last reviewed 2021. Blood 01/27/2025 9:07 AM CDT 01/27/2025 12:19 PM CDT Toño Vivas MD LAB BLOOD ORDERABLES Final Re sult [facility] [address] [facility] Department of Laboratories [place], [place] [id number] * Differential, auto (01/27/2025 9:07 AM CDT) Pathologist [facility] Neutrophil abs 2.96 1.50 - 6.50 K/cumm Imm gran abs 0.01 0.00 - 0.10 K/cumm [facility] Lymphocyte abs 1.47 0.80 - 3.30 K/cumm [facility] Monocyte abs 0.73 0.20 - 0.80 K/cumm [facility] Eosinophil abs 0.14 0.00 - 0.50 K/cumm [facility] Basophil abs 0.06 0.00 - 0.10 K/cumm [facility] Neutrophil pct 55.1 % [facility] Comment: Interpretive Data Percent cell count reference ranges are not reported, since discordance with absolute values may lead to misinterpretation of CBC data. Current Interpretive Data was last revised on 2017. Imm gran pct 0.2 % [facility] Comment: Interpretive Data Percent cell count reference ranges are not reported, since discordance with absolute values may lead to misinterpretation of CBC data. Current Interpretive Data was last revised on 2017. Lymphocyte pct 27.4 % [facility] Comment: Interpretive Data Percent cell count reference ranges are not reported, since discordance with absolute values may lead to misinterpretation of CBC data. Current Interpretive Data was last revised on 2017. Monocyte pct 13.6 % [facility] Comment: Interpretive Data Percent cell count reference ranges are not reported, since discordance with absolute values may lead to misinterpretation of CBC data. Current Interpretive Data was last revised on 2017. Eosinophil pct 2.6 % [facility] Comment: Interpretive Data Percent cell count reference ranges are not reported, since discordance with absolute values may lead to misinterpretation of CBC data. Current Interpretive Data was last revised on 2017. Basophil pct 1.1 % [facility] Comment: Interpretive Data Percent cell count reference ranges are not reported, since discordance with absolute values may lead to misinterpretation of CBC data. Current Interpretive Data was last revised on 2017. Blood 01/27/2025 9:07 AM CDT 01/27/2025 12:19 PM CDT Toño Vivas MD LAB BLOOD ORDERABLES Final Re sult [place] [id number] [facility] Department [place] [address] * (ABNORMAL) CBC with auto differential (01/27/2025 9:07 AM CDT) WBC 5.37 3.80 - 9.90 K/cumm Hgb 14.2 11.9 - 15.5 g/dL [facility] Hct 44.0 35.6 - 45.5 % [facility] Plt 212 150 - 400 K/cumm [facility] MPV 10.2 9.1 - 12.3 fL [facility] RBC 4.47 3.90 - 5.20 M/cumm [facility] MCV 98.4(H) 81.3 - 96.4 fL [facility] MCH 31.8 27.1 - 33.3 pg [facility] MCHC 32.3 32.3 - 35.7 g/dL [facility] RDW CV 12.8 11.1 - 14.9 % [facility] RDW SD 46.0 35.7 - 48.1 fL [facility] NRBC abs 0.00 0.00 - 0.01 K/cumm [facility] Blood 01/27/2025 9:07 AM CDT 01/27/2025 12:19 PM CDT Toño Vivas MD LAB BLOOD ORDERABLES Final Re sult Performing Organization Address City/[facility]/ZIP Co de Phone Number [facility] [address] Department [place] [address] * Comprehensive metabolic panel (01/27/2025 9:07 AM CDT) Sodium 142 135 - 145 mmol/L Potassium, pl 4.4 3.3 - 4.9 mmol/L [facility] Chloride 105 97 - 110 mmol/L [facility] CO2 30 22 - 32 mmol/L [facility] Anion gap 7 2 - 15 mmol/L [facility] BUN 20 6 - 25 mg/dL [facility] Creatinine 0.76 0.60 - 1.10 mg/dL [facility] Glucose 99 70 - 199 mg/dL [facility] Comment: Interpretive Data Fasting glucose >/= [...] classification and Diagnosis of Diabetes Diabetes Care 2021; 46: S19-S40. Current interpretive data was last revised 2022. Calcium 9.6 8.5 - 10.3 mg/dL [facility] Bilirubin, total 0.5 0.1 - 1.2 mg/dL [facility] Protein, pl 6.9 6.5 - 8.5 g/dL [facility] Albumin 4.1 3.5 - 5.0 g/dL [facility] Alk phos 77 40 - 130 Units/L [facility] ALT 20 7 - 45 Units/L [facility] AST 28 10 - 45 Units/L [facility] Blood 01/27/2025 9:07 AM CDT 01/27/2025 12:19 PM CDT Toño Vivas MD LAB BLOOD ORDERABLES Final Re sult Performing Organization Address City/[facility]/ZIP Co de Phone Number JOHANNA DODSON [address] Department [place] [address] * Screening Mammogram Bilateral W Denis (06/04/2023 [...] Bilateral stable diffuse benign calcifications are seen. us Self Screening Mammogram IMG MAMMO PROCEDURES Fi [...] hip. Electronically signed by: Muna Ramirez M.D. Narrative 07/20/2022 10:13 AM CDT Examination: Bone densitometry [...] Colonoscopy (01/29/2019) Anatomical Region Laterality Modality Other us Historical Provider ENDOSCOPY PROCEDURES Desirae l Result * Hepatitis C antibody (03/22/2016 9:00 AM CDT) SIGNAL TO CUT-OFF 0.03 <1.00 [facility]ISTORICAL RESULTS Comment: Test performed at [facility] [place] [address] [facility] [place] [address] Director: RACHEL LEONE DO,MPH Hep C Ab NON-REACT ELEANOR NON-REACT ELEANOR [facility] HISTORICAL RESULTS 03/22/2016 9:00 AM CDT us Dede SALAZAR LAB MICROBIOLOGY - GENERAL ORDERABLES Final Result [facility] HISTORICAL RESULTS from Last 3 Months or Most Recently Relevant to Health Maintenance Insurance [employer] PPO [employer] PPO Care Teams Frame Hand Relationship Specialty Start Date End Date Toño Vivas MD PCP - General Family Medicine 07/24/23
--- OUTSIDE RECORDS SUMMARY | 2025-04-14 08:40 | XMS_ITS | Encounter Summary ---
Author Organization [facility] Address [address] [place] [address] Care Team Providers Care Flange Turner Name Role Phone Girish Breen MD Primary Care Provider [phone] Encounter Details Date Type Department Care Team (Latest Contact Info) Description 11/15/2000 Outpatient Historical HIS [facility] Rolando Sood Chest pain, unspecified (Primary Dx) Social History Tobacco Use Types Packs/Day Years Used Date Smoking Tobacco: Never Assessed Comments Unknown Sex and Gender Information Value Date Recorded Sex Assigned at Not on file Legal Sex Female 4:38 AM COMPUTING CONSULTANT Gender Identity Not on file Sexual Orientation Not on file documented as of this encounter Plan of Treatment Not on file documented as of this encounter Visit Diagnoses Diagnosis Chest pain, unspecified- Primary documented in this encounter Care Teams Flange Turner Relationship Specialty Start Date End Date Girish Breen MD PCP - General 09/06/15 documented as of this encounter
== END 2025-04-14 08:23 | disposition home or self-care (01) ==
PROVIDERS: PCP Family Medicine; Visit Provider Physician Assistant Surgical
DX: R52 Pain, unspecified (principal)
CPT/HCPCS: 73562

== ENCOUNTER 2025-07-08 02:13 | Day surgery (SDC) | payer OTHER, SELFPAY ==
[2025-07-07 13:20] VITALS: BMI 24.2
[2025-07-08] VITALS (18 sets, daily range): BP systolic 96–146; BP diastolic 53–75; PULSE 53–71; RESP 11–20; TEMP 36.2; O2SAT 94–100; BMI 24.6
--- OUTSIDE RECORDS SUMMARY | 2025-07-08 02:15 | XMS_ITS | Encounter Summary ---
Author Organization [facility] Address [address] [place] [address] Care Team Providers Care Manufacturing Maintenance Technician Name Role Phone Girish Breen MD Primary Care Provider [phone] Encounter Details Date Type Department Care Team (Latest Contact Info) Description 06/25/2001 Outpatient Historical HIS [facility] Rolando Cummings Unspecified arthropathy, multiple sites (Primary Dx) Social History Tobacco Use Types Packs/Day Years Used Date Smoking Tobacco: Never Assessed Comments Unknown Sex and Gender Information Value Date Recorded Sex Assigned at Not on file Legal Sex Female 4:38 AM CONDENSER OPERATOR Gender Identity Not on file Sexual Orientation Not on file documented as of this encounter Plan of Treatment Not on file documented as of this encounter Visit Diagnoses Diagnosis Unspecified arthropathy, multiple sites- Primary documented in this encounter Care Teams Manufacturing Maintenance Technician Relationship Specialty Start Date End Date Girish Breen MD PCP - General 09/06/15 documented as of this encounter
--- OUTSIDE RECORDS SUMMARY | 2025-07-08 02:15 | XMS_ITS | Encounter Summary ---
Author Organization [employer] [facility] Address [address] [place] [address] Care Team Providers Care Tire Care Manager Name Role Phone Girish Breen MD Primary Care Provider [phone] Encounter Details Date Type Department Care Team (Latest Contact Info) Description 09/05/2001 Outpatient Historical [place] [address] [place] [address] FEMALE CLIMACTERIC STATE (Primary Dx) Social History Tobacco Use Types Packs/Day Years Used Date Smoking Tobacco: Never Assessed Comments Unknown Sex and Gender Information Value Date Recorded Sex Assigned at Not on file Legal Sex Female 4:38 AM SPORTS PHYSICIAN Gender Identity Not on file Sexual Orientation Not on file documented as of this encounter Plan of Treatment Not on file documented as of this encounter Visit Diagnoses Diagnosis Symptomatic menopausal or female climacteric states- Primary documented in this encounter Care Teams Tire Care Manager Relationship Specialty Start Date End Date Girish Breen MD PCP - General 09/06/15 documented as of this encounter
--- OUTSIDE RECORDS SUMMARY | 2025-07-08 02:15 | XMS_ITS | Encounter Summary ---
Author Organization [employer] [facility] Address [address] [place] [address] Care Team Providers Care Business Intelligence Architect Name Role Phone Girish Breen MD Primary Care Provider [phone] Encounter Details Date Type Department Care Team (Latest Contact Info) Description 11/15/2000 Outpatient Historical [facility] Rolando Sood Chest pain, unspecified (Primary Dx) Social History Tobacco Use Types Packs/Day Years Used Date Smoking Tobacco: Never Assessed Comments Unknown Sex and Gender Information Value Date Recorded Sex Assigned at Not on file Legal Sex Female 4:38 AM CUSTOMER CARE MANAGER Gender Identity Not on file Sexual Orientation Not on file documented as of this encounter Plan of Treatment Not on file documented as of this encounter Visit Diagnoses Diagnosis Chest pain, unspecified- Primary documented in this encounter Care Teams Business Intelligence Architect Relationship Specialty Start Date End Date Girish Breen MD PCP - General 09/06/15 documented as of this encounter
--- OUTSIDE RECORDS SUMMARY | 2025-07-08 02:15 | XMS_ITS | Patient Health Record ---
Author Organization [facility] Address [address] [place], [place] [id number] Care Team Providers Care Electron Tube Assembler Name Role Phone MEL RICHEY Unavailable [phone] Nadia Witt Unavailable Unavailable Reason For Referral No Information Medications Medication SIG (Take, Route, Frequency, Duration) Notes Start Date End Date Status trazodone hydrochloride 50 MG Oral Tablet ORAL trazodone hydrochloride 50 MG Oral TabletOriginal Medicationtrazodone hydrochloride 50 MG Oral Tablet *Reorder from [employer] for eRx and Interaction Alerts* 07/29/2020 Active pantoprazole 40 MG Delayed Release Oral Tablet [Protonix] ORAL pantoprazole 40 MG Delayed Release Oral Tablet [Protonix]Original Medicationpantoprazole 40 MG Delayed Release Oral Tablet [Protonix] *Reorder from [employer] for eRx and Interaction Alerts* 07/29/2020 Active sumatriptan 25 MG Oral Tablet [Imitrex] ORAL sumatriptan 25 MG Oral Tablet [Imitrex]Original Medicationsumatriptan 25 MG Oral Tablet [Imitrex] *Reorder from [employer] for eRx and Interaction Alerts* 07/29/2020 Active Simvastatin 40 MG Oral Tablet ORAL simvastatin 40 MG Oral TabletOriginal Medicationsimvastatin 40 MG Oral Tablet *Reorder from [employer] for eRx and Interaction Alerts* 07/29/2020 Active Metoprolol Tartrate 25 MG Oral Tablet ORAL metoprolol tartrate 25 MG Oral TabletOriginal Medicationmetoprolol tartrate 25 MG Oral Tablet *Reorder from [employer] for eRx and Interaction Alerts* 07/29/2020 Active Folic Acid 1 MG Oral Tablet ORAL folic acid 1 MG Oral TabletOriginal Medicationfolic acid 1 MG Oral Tablet *Reorder from [employer] for eRx and Interaction Alerts* 07/29/2020 Active Lisinopril 5 MG Oral Tablet ORAL lisinopril 5 MG Oral TabletOriginal Medicationlisinopril 5 MG Oral Tablet *Reorder from [facility] for eRx and Interaction Alerts* 07/29/2020 Active Aspirin 81 MG Oral aspirin 81 MG Ch ewable TabletOriginal Medicationaspirin 81 MG Chewable Tablet 07/29/2020 Active Plan Of Treatment No Information Insurance Providers Payer Name Payer Address Payer Phone Subscriber Number Group Number Insured Name Patient Relationship to Insured Coverage Start Date Coverage End Date Doctor At Work. [address] [place] [id number] YOKO MÁRQUEZ Self - patient is the insured
--- OUTSIDE RECORDS SUMMARY | 2025-07-08 02:15 | XMS_ITS | Encounter Summary ---
Author Organization [facility] Address [address] [place] [address] Care Team Providers Care Ultrasound Technologist Sonographer Name Role Phone Girish Breen MD Primary Care Provider [phone] Encounter Details Date Type Department Care Team (Latest Contact Info) Description 11/06/2002 Outpatient Historical HIS [facility] Rolando Cummings LOC OSTEOARTH NOS-PELVIS (Primary Dx) Social History Tobacco Use Types Packs/Day Years Used Date Smoking Tobacco: Never Assessed Comments Unknown Sex and Gender Information Value Date Recorded Sex Assigned at Not on file Legal Sex Female 4:38 AM CERAMICS ARTIST Gender Identity Not on file Sexual Orientation Not on file documented as of this encounter Plan of Treatment Not on file documented as of this encounter Visit Diagnoses Diagnosis Localized osteoarthrosis not specified whether primary or secondary, pelvic region and thigh- Primary documented in this encounter Care Teams Ultrasound Technologist Sonographer Relationship Specialty Start Date End Date Girish Breen MD PCP - General 09/06/15 documented as of this encounter
--- OUTSIDE RECORDS SUMMARY | 2025-07-08 02:15 | XMS_ITS | Encounter Summary ---
Author Organization [facility] Address [address] [place] [address] Care Team Providers Care Knit Goods Mender Name Role Phone Girish Breen MD Primary Care Provider [phone] Encounter Details Date Type Department Care Team (Latest Contact Info) Description 11/28/2001 Outpatient Historical HIS [facility] Rolando Cummings HYPERTENSION NOS (Primary Dx) Social History Tobacco Use Types Packs/Day Years Used Date Smoking Tobacco: Never Assessed Comments Unknown Sex and Gender Information Value Date Recorded Sex Assigned at Not on file Legal Sex Female 4:38 AM POT OPERATOR Gender Identity Not on file Sexual Orientation Not on file documented as of this encounter Plan of Treatment Not on file documented as of this encounter Visit Diagnoses Diagnosis Unspecified essential hypertension- Primary documented in this encounter Care Teams Knit Goods Mender Relationship Specialty Start Date End Date Girish Breen MD PCP - General 09/06/15 documented as of this encounter
--- OUTSIDE RECORDS SUMMARY | 2025-07-08 02:15 | XMS_ITS | Encounter Summary ---
Author Organization [facility] Address [address] [place] [address] Care Team Providers Care Speedboat Driver Name Role Phone Girish Breen MD Primary Care Provider [phone] Encounter Details Date Type Department Care Team (Latest Contact Info) Description 03/07/2001 Outpatient Historical HIS [facility] Rolando Cummings Unspecified essential hypertension (Primary Dx) Social History Tobacco Use Types Packs/Day Years Used Date Smoking Tobacco: Never Assessed Comments Unknown Sex and Gender Information Value Date Recorded Sex Assigned at Not on file Legal Sex Female 4:38 AM VP PUBLISHER DEVELOPMENT Gender Identity Not on file Sexual Orientation Not on file documented as of this encounter Plan of Treatment Not on file documented as of this encounter Visit Diagnoses Diagnosis Unspecified essential hypertension- Primary documented in this encounter Care Teams Speedboat Driver Relationship Specialty Start Date End Date Girish Breen MD PCP - General 09/06/15 documented as of this encounter
--- OUTSIDE RECORDS SUMMARY | 2025-07-08 02:15 | XMS_ITS | Clinical Summary ---
Author Organization [facility] Address [address] [place] [address] Care Team Providers Care Agricultural Chemicals Inspector Name Role Phone Girish Breen MD Primary Care Provider [phone] Allergies Active Allergy Reactions Criticality Noted Date [...] on file Legal Sex Female 4:38 AM SPECIAL EFFECTS MAKEUP ARTIST Gender Identity Not on file Sexual [...] Modality Breast Bilateral Other us [place] LOADING MACHINE ADJUSTER MAMMO ORDERABLES Final Resu lt * (ABNORMAL) [...] Most Recently Relevant to Health Maintenance Insurance [facility] OPEN ACCESS O Care Teams Agricultural Chemicals Inspector Relationship Specialty Start Date End Date Girish Breen MD PCP - General 09/06/15
--- OUTSIDE RECORDS SUMMARY | 2025-07-08 02:15 | XMS_ITS | Encounter Summary ---
Author Organization [facility] Address [address] [place] [address] Care Team Providers Care Chemistry Department Chair Name Role Phone Girish Breen MD Primary Care Provider [phone] Encounter Details Date Type Department Care Team (Latest Contact Info) Description 12/20/2000 Outpatient Historical HIS [facility] Rolando Cummings Unspecified essential hypertension (Primary Dx) Social History Tobacco Use Types Packs/Day Years Used Date Smoking Tobacco: Never Assessed Comments Unknown Sex and Gender Information Value Date Recorded Sex Assigned at Not on file Legal Sex Female 4:38 AM OUTREACH MANAGER Gender Identity Not on file Sexual Orientation Not on file documented as of this encounter Plan of Treatment Not on file documented as of this encounter Visit Diagnoses Diagnosis Unspecified essential hypertension- Primary documented in this encounter Care Teams Chemistry Department Chair Relationship Specialty Start Date End Date Girish Breen MD PCP - General 09/06/15 documented as of this encounter
--- OUTSIDE RECORDS SUMMARY | 2025-07-08 02:16 | XMS_ITS | Encounter Summary ---
Author Organization [facility] Address [address] [place] [address] Care Team Providers Care Hides And Skins Colorer Name Role Phone Girish Breen MD Primary Care Provider [phone] Encounter Details Date Type Department Care Team (Latest Contact Info) Description 04/09/2000 Outpatient Historical HIS [facility] Rolando Cummings Acute pharyngitis (Primary Dx) Social History Tobacco Use Types Packs/Day Years Used Date Smoking Tobacco: Never Assessed Comments Unknown Sex and Gender Information Value Date Recorded Sex Assigned at Not on file Legal Sex Female 4:38 AM HOT WALKER Gender Identity Not on file Sexual Orientation Not on file documented as of this encounter Plan of Treatment Not on file documented as of this encounter Visit Diagnoses Diagnosis Acute pharyngitis- Primary documented in this encounter Care Teams Hides And Skins Colorer Relationship Specialty Start Date End Date Girish Breen MD PCP - General 09/06/15 documented as of this encounter
--- OUTSIDE RECORDS SUMMARY | 2025-07-08 02:16 | XMS_ITS | Clinical Summary ---
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 Role Phone Toño Vivas MD Primary Care Provider [phone] Allergies Active Allergy Reactions Criticality Noted Date [...] Take 1 tablet by mouth daily Active Ta-X3-ibj-zinc-co r-tzcb-[id number] 600 mg calcium- 800 unit-40 mg tablet,chewable Take by mouth Active cholecalciferol (VITAMIN D-3) 3,000 unit tablet Take 1 tablet (3,000 Units total) by mouth daily Active multivitamin tabletIndications :Vitamin Deficiency Prevention Take 1 tablet by mouth Active rimegepant (Nurtec ODT) tablet,disintegra ting Take 1 tablet (75 mg total) by mouth daily as needed (take as needed for COOL) 4 tablet 3 Active nitroglycerin (NITROSTAT) 0.4 mg SL tabletIndications :Atherosclerosis of coronary artery of andreafski heart without angina pectoris, unspecified vessel or lesion type 1 tablet under the tongue every 5 minutes as needed for chest pain on third dose report to ER 25 tablet 3 5 Active lisinopriL (PRINIVIL,ZESTRIL ) 5 mg tabletIndications :Essential hypertension Take 1 tablet (5 mg total) by mouth daily 90 tablet 3 5 Active atorvastatin (LIPITOR) 40 mg tabletIndications :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 Discussed management of reticular veins which is primarily sclerotherapy, I have recommended surveillance, if she continues to have episodes of bleeding would recommend referral to Dr. James for sclerotherapy. Can follow-up as needed. 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 Assessment & Plan (05/21/2017 8:36 AM CDT): Hypertension is improving with treatment. Dietary sodium restriction. Blood pressure will be reassessed in 3 months. Osteoporosis 01/30/2014 Overview (12/21/2016): OSTEOPOROSIS NOS Assessment & Plan (05/21/2017 8:51 AM CDT): Continue follow at this time no new issues Hyperlipidemia LDL goal <70 01/30/2014 Overview (09/18/2023): Assessment & Plan (09/18/2023 9:10 AM [facility]): Stable continue Lipitor 40 mg. Assessment & Plan (03/25/2018 11:10 AM CDT): Recheck a fasting lipid profile today Assessment & Plan (05/21/2017 8:36 AM CDT): We will recheck a fasting lipid profile today continues on simvastatin Resolved Problems Problem Noted Date Diagnosed Date Resolved Date Atypical chest pain 02/15/2023 07/24/20 23 Bone disorder 05/08/2021 05/08/2021 Bilateral lower extremity [...] Encounters Date Type Department Care Team Description 06/22/2025 8:00 AM CDT Office Visit [facility] [address] [place] [address] [address] [place] [phone] Madina Scott NP Abnormal stress electrocardiogram test (Primary Dx); Frequent PVCs; Coronary artery disease involving andreafski coronary artery of andreafski heart without angina pectoris 06/02/2025 Telephone [facility] [address] [place] [address] [place] [phone] Patric Fulton MD 06/01/2025 11:15 AM CDT Ancillary Procedure [facility] [address] [place] [address] [place] [phone] 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 (CMS/HCC) (HCC); Palpitations; Dyspnea on exertion 05/13/2025 1:00 PM CDT Ancillary Procedure [facility] at [address] [place] [address] Frequent PVCs 05/13/2025 10:30 AM CDT Office Visit [facility] [address] [place] [address] [place] [phone] Patric Fulton MD 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 (CMS/HCC) (HCC) (Primary Dx); Essential hypertension, benign; Hyperlipidemia LDL goal <70; Palpitations; Dyspnea on exertion; Frequent PVCs 05/13/2025 9:00 AM CDT Ancillary Procedure [facility] [address] [place] [address] [address] [place] [phone] Palpitations 05/13/2025 Results Follow-Up [facility] at [place] [address] [facility] [address] [place] [address] Toño Vivas MD Electrocardiogram Report, Transthoracic Echo (TTE) Complete W Doppler/CF, NM MPI SPECT (Rest and/or Stress) Multiple Studies 05/03/2025 9:49 AM CDT - 05/03/2025 11:59 PM CDT Hospital Encounter [facility] Medical Office [address] [place] [phone] Osteopenia of lumbar spine Discharge Disposition: Discharge to home or self care 05/03/2025 9:49 AM CDT - 05/03/2025 11:59 PM CDT Hospital Encounter [address] [address] Breast cancer screening by mammogram Discharge Disposition: Discharge to home or self care 04/14/2025 Orders Only [facility] Health Information Management [address] [place] [id number] Toño Vivas MD from Last 3 Months Immunizations Immunization Administration [...] Surgery Date Site/Laterality Comments BREAST BIOPSY Bilateral OTHER SURGICAL HISTORY D&C LAPAROSCOPICALLY ASSISTED VAGINAL HYSTERECTOMY lavh OTHER SURGICAL HISTORY silicone implants removed OTHER SURGICAL HISTORY salene implants removed AUGMENTATION MAMMAPLASTY 1983 and 1999 removed 2013 Silicone ruptured in left breast Medical History Medical History Date Comments Cardiovascular disease Coronary artery disease Hx Other Medical Headache, migra ine Hypertension Hypertension Essential (primary) hypertension Hypertension - (Added by TW Conv) Anxiety Hyperlipidemia Family History Medical History Relation [...] on file Legal Sex Female 1:54 AM [facility] Gender Identity Not on file Sexual Orientation Not on file Obstetrics History Para Term AB IAB SAB Ectopic Multiple Livin g Live Births 1 1 1 Date Outcome GA Total Labor Labor/2nd/3rd Weight Sex Type Anes PTL Kira A1 A5 Name Clin Term Last Filed Vital Signs Vital Sign Reading Time Taken Comments Blood Pressure 136/64 06/22/2025 8:01 AM CDT Pulse 59 06/22/2025 8:01 AM CDT Temperature 36.8 C (98.3 F) 01/27/2025 8:07 AM CDT Respiratory Rate 16 08/30/2023 9:31 AM [facility] Oxygen Saturation 98% 06/22/2025 8:01 AM CDT Inhaled Oxygen Concentration - - Weight 50.2 kg (110 lb 11.2 oz) 06/22/2025 8:01 AM CDT Height 142.2 cm (4' 8) 06/22/2025 8:01 AM CDT Body Mass Index 24.82 06/22/2025 8:01 AM CDT Plan of Treatment Health Maintenance Due Date Last Done Comments Hepatitis B Screening 1968 Zoster Vaccine (1 of 2) 2000 DTaP/Tdap/Td Vaccine (1 - Tdap) 09/17/2009 0 Covid-19 Vaccine (3 - 2024-2 6 season) 2025 12/20/2020, 11/28/2020 Influenza Vaccine (#1) 2025 , 06/13/2023, 06/27/2022, Additional history exists Depression Screening 01/27/2026 01/27/2025, 01/27/2024, 10/31/2022, Additional history exists Fall Risk Assessment 01/27/2026 01/27/2025, 01/27/2024, 10/31/2022, Additional history exists Well Visit 65+ 01/27/2026 01/27/2025, 01/14, 04/24/2022, Additional history exists Osteoporosis Screening-Bone Density Scan 05/03/2027 05/03/2025, 07/20/2022, 05/26/2020, Additional history exists Colon Cancer Screening-Colonoscopy 01/29/2029 01/29/2019, 07/28/2014, 05/21/2014 Hepatitis C Screening Completed 03/22/2016 Colon Cancer Screening-CT Colonography Discontinued 01/29/2019, 07/28/2014, 05/21/2014 Colon Cancer Screening-DNA Stool Discontinued 01/29/2019, 07/28/2014, 05/21/2014 Colon Cancer Screening-FIT Discontinued 01/29, 07/28/2014, 05/21/2014 Colon Cancer Screening-Sigmoidoscopy Discontinued 01/29/2019, 07/28/2014, 05/21/2014 Pneumococcal vaccine 65+ Completed 05/13/2019, 01/2017 Breast Cancer Screening-Mammogram Discontinued 05/03/2025, 06/04/2023, 05/31/2022, Additional history exists Procedures Procedure Name Priority Date/Time Associated Diagnosis Comments NM MPI SPECT (REST AND/OR STRESS) MULTIPLE STUDIES Schedule Routine, Read Routine (OP Routine) 06/01/2025 12:51 PM CDT 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 (CMS/HCC) (HCC) Palpitations Dyspnea on exertion TRANSTHORACIC ECHO (TTE) COMPLETE W DOPPLER/CF WO CONTRAST Routine 05/13/2025 1:16 PM CDT Frequent PVCs HOLTER MONITOR 48 HR Routine 05/13/2025 12:00 PM CDT Palpitations ELECTROCARDIOGRAM REPORT Routine 025 11:58 AM CDT Palpitations Frequent PVCs DEXA AXIAL SKELETON BONE DENSITY 1 OR MORE SITES Schedule Routine, Read Routine (OP Routine) 05/03/2025 10:21 AM CDT Osteopenia of lumbar spine SCREENING MAMMOGRAM BILATERAL W RAMIREZ Schedule Routine, Read Routine (OP Routine) 05/03/2025 10:06 AM CDT Breast cancer screening by mammogram SCAN - RADIOLOGY/IMAGING 04/14/2025 COLONOSCOPY Routine 01/29/2019 HEPATITIS C ANTIBODY Routine 03/22/2016 9:00 AM CDT from Last 3 Months or Most Recently Relevant to Health Maintenance Results * NM MPI SPECT (Rest and/or Stress) Multiple Studies (06/01/2025 12:51 PM CDT) Anatomical Region Laterality Modality Body N/A Nuclear Medicine 06/01/2025 8:36 AM CDT Narrative 06/01/2025 7:47 PM CDT [facility] [address], [place] [address] [address] [facility] [address], [place] [address] [address] , [place] [address] P:[phone] P:[phone] MPI Imaging Report Patient Name: FRANCHESKA MÁRQUEZ A : 1950 Study Date: 06/01/2025 8:36:20 AM Sex: F Tech: [facility] Location: [facility] Provider: PATRIC FULTON Height(Cm): 142.2 BSA: Weight(Kg): 50.8 BMI: 25.12 Order Provider: PATRIC FULTON PHYSICIAN: Primary Care Physician: Dr. Vivas. [facility] Physician: Sundeep Fulton M.D. Stress Supervision: Sundeep Fulton M.D. Stress Interpreting Physician: Sundeep Fulton M.D. Image Interpreting Physician: Sundeep Fulton M.D. PROCEDURES: Pharmacologic SPECT Report: Myocardial perfusion imaging with Tc99M Sestamibi SPECT at rest and stress post regadenoson (Lexiscan) infusion. INDICATIONS: Hypertension, Family Hx CAD, High Cholesterol, I25.118 Atherosclerotic heart disease of andreafski coronary artery with other forms of angina pectoris, R00.2 Palpitations, and R06.09 Other forms of dyspnea. FINDINGS: Procedural Findings: One day rest/stress was used. Tc99m Sestamibi injected IV at rest was 8.8 millicuries 24.4 millicuries of Tc99M Sestamibi injected IV during Lexiscan stress Lexiscan 0.4mg given IV over 10 seconds with low level exercise: 1.2 MPH Patient had no symptoms during stress test. Baseline heart rate was 61 BPM Maximum Heart Rate Achieved was: 113 BPM Baseline blood pressure was 128/72 mmHg Post Stress Blood Pressure was 136/78 mmHg Termination: Protocol complete. Resting ECG: Normal sinus rhythm eith ventricular trigeminy. Post EC mm or more horizontal inf/lat ST depression. Findings are suggestive of ischemia. Arrhythmia: Frequent PVCs. Perfusion Findings: Normal perfusion imaging. No definite fixed or reversible defects. Technical quality of study is excellent. Prone imaging was performed. Left ventricle cavity size at rest is normal. Left ventricle cavity size with stress is unchanged. A TID of 0.86 was automatically calculated. LV Function: Global left ventricular function is normal. Left ventricular ejection fraction is 66 %. CONCLUSIONS: 1 mm or more horizontal inf/lat ST depression. Findings are suggestive of ischemia. Global left ventricular function is normal. Left ventricular ejection fraction is 66 %. Myocardial perfusion imaging is normal. Anteroseptal Defect is noted with stress and rest which completely normalizes with prone imaging consistent with soft tissue attenuation artifact. Electronically Signed By: Patric Fulton MD 06/01/2025 6:47:59 PM CDT Electronically Signed By: Patric Fulton MD 06/01/2025 6:47:59 PM CDT Procedure Note Patric Fulton MD - 06/01/2025 [facility] [address] [facility] [address] [address] [address] [address], [place] [address] [address] [place] [address] P:[phone] P:[phone] MPI Imaging Report Patient Name: FRANCHESKA MÁRQUEZ A : 1950 Study Date: 06/01/2025 8:36:20 AM Sex: F Tech: [facility] Location: [facility] Provider: PATRIC FULTON Height(Cm): 142.2 BSA: Weight(Kg): 50.8 BMI: 25.12 Order Provider: PATRIC FULTON PHYSICIAN: Primary Care Physician: Dr. Vivas. [facility] Physician: Sundeep Fulton M.D.Stress Supervision: Sundeep Fulton M.D. Stress Interpreting Physician: Daniel Felton Image Interpreting Physician: Sundeep Fulton M.D. PROCEDURES: Pharmacologic SPECT Report: Myocardial perfusion imaging with Tc99M Sestamibi SPECT at rest and stresspost regadenoson (Lexiscan) infusion. INDICATIONS: Hypertension, Family Hx CAD, High Cholesterol, I25.118 Atheroscleroticheart disease of andreafski coronary artery with other forms of angina pectoris, R00.2Palpitations, and R06.09 Other forms of dyspnea. FINDINGS: Procedural Findings: One day rest/stress was used. Tc99m Sestamibi injected IV at rest was 8.8 millicuries 24.4 millicuries of Tc99M Sestamibi injected IV during Lexiscan stress Lexiscan 0.4mg given IV over 10 seconds with low level exercise: 1.2MPH Patient had no symptoms during stress test. Baseline heart rate was 61 BPM Maximum Heart Rate Achieved was: 113 BPM Baseline blood pressure was 128/72 mmHg Post Stress Blood Pressure was 136/78 mmHg Termination: Protocol complete. Resting ECG: Normal sinus rhythm eith ventricular trigeminy. Post EC mm or more horizontal inf/lat ST depression. Findings are suggestive ofischemia. Arrhythmia: Frequent PVCs. Perfusion Findings: Normal perfusion imaging. No definite fixed or reversible defects.Technical quality of study is excellent. Prone imaging was performed. Left ventricle cavitysize at rest is normal. Left ventricle cavity size with stress is unchanged. A TID of 0.86was automatically calculated. LV Function: Global left ventricular function is normal. Left ventricular ejectionfraction is 66 %. CONCLUSIONS: 1 mm or more horizontal inf/lat ST depression. Findings are suggestive ofischemia. Global left ventricular function is normal. Left ventricular ejectionfraction is 66 %. Myocardial perfusion imaging is normal. Anteroseptal Defect is noted withstress and rest which completely normalizes with prone imaging consistent with soft tissueattenuation artifact. Electronically Signed By: Patric Fulton MD 06/01/2025 6:47:59 PM CDT Electronically Signed By: Patric Fulton MD 06/01/2025 6:47:59 PM CDT us Patric Fulton MD IMG NM PROCEDURES Final R esult * TRANSTHORACIC ECHO (TTE) COMPLETE W DOPPLER/CF WO CONTRAST (05/13/2025 1:16 PM CDT) Estimated EF 60-65 % CONS SCIMAGE EF Mod BP 62 % CONS SCIMAGE Anatomical Region Laterality Modality Ultrasound 05/13/2025 12:5 1 PM CDT Narrative 05/13/2025 5:03 PM CDT [facility] [address] [facility], [address], [place] [address] P:[phone] P:[phone] Echocardiographic Report Patient Name: FRANCHESKA MÁRQUEZ A : 1950 Study Date: 05/13/2025 12:51:00 PM Sex: F 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 With Strain Analysis. INDICATIONS: I49.3 Ventricular premature depolarization. MEASUREMENTS: 2D/MM Value Range Doppler Value Range EF Mod BP 62 % [ 54 - 74 ] SAI Vmax 2.37 cm2 [ 2.00 - 4.00 ] EF Teich MM 53 % [ 54 - 74 ] AV Mean PG 4 mmHg Estimated EF 60-65 % AV Peak Valdo 1.25 m/s [ 1.00 - 1.70 ] LV GLS -17.99 % AV Peak PG 6 mmHg LVIDd 2D 4.23 cm [ 3.80 - 5.20 ] AV VTI 30.51 cm LVIDd MM 4.77 cm [ 3.80 - 5.20 ] LVOT Diam 1.97 cm [ 1.70 - 2.10 ] LVIDs 2D 2.99 cm [ 2.20 - 3.50 ] LVOT Peak Valdo 0.98 m/s [ 0.70 - 1.10 ] LVIDs MM 3.48 cm [ 2.20 - 3.50 ] LVOT VTI 21.86 cm LVPWd 2D 0.89 cm [ 0.60 - 0.90 ] MV E Peak Valdo 0.83 m/s [ 0.60 - 1.30 ] LVPWd MM 0.68 cm [ 0.60 - 0.90 ] MV A Peak Valdo 0.93 m/s [ 1.00 - 1.20 ] IVSd 2D 0.91 cm [ 0.60 - 0.90 ] MV Decel Time 244 msec [ 104 - 258 ] IVSd MM 0.86 cm [ 0.60 - 0.90 ] PV Peak Valdo 0.85 m/s [ 0.40 - 0.80 ] LA Dimension MM 3.05 cm [ 2.70 - 3.80 ] TR Peak Valdo 2.61 m/s [ 1.00 - 2.80 ] AoR Diam MM 3.51 cm [ 2.70 - 3.70 ] TR Peak PG 27 mmHg LA Volume 36.11 ml [ 22.00 - 52.00 ] RV S` 0.12 m/s LA Volume Index 25 cc/m2 [ 16 - 28 ] Lateral E` 0.07 m/s [ 0.10 - 0.15 ] ACS MM 1.77 cm Septal E` 0.07 m/s [ 0.08 - 0.15 ] RA Volume 22.59 ml E` 0.07 m/s E/E` 12 Tapse 1.99 cm [ 1.71 - 5.00 ] 2D/MM Value Range Doppler Value Range - FINDINGS: Interpretation Site: Exam was interpreted at [facility]. Left Ventricle: Normal left ventricular systolic function. No focal wall motion abnormalities. Normal left ventricular size. Normal left ventricular wall thickness. Impaired diastolic relaxation Grade I. Ejection fraction is measured at 62 %. Ejection Fraction is visually estimated to be 60-65 %. Global Longitudinal Strain is -18 %. GLS is borderline. Right Ventricle: Normal right ventricular size. Normal right ventricular systolic function. Left Atrium: There is mild enlargement of left atrium. Right Atrium: The right atrium is normal in size. Atrial Septum: Normal atrial septum. Mitral Valve: Normal appearance of the mitral valve. Mild mitral valve regurgitation. There is no hemodynamically significant mitral stenosis by Doppler. Aortic Valve: No evidence of hemodynamically significant aortic stenosis by Doppler. Aortic cusps appear mildly sclerotic. Trileaflet aortic valve. Trace aortic valve regurgitation. Tricuspid Valve: Normal appearance of the tricuspid valve. Normal right ventricular systolic pressure. Estimated peak RVSP is 30-35 mmHg. Mild tricuspid regurgitation. Pulmonic Valve: Normal appearance of the pulmonic valve. No pulmonic stenosis. Mild pulmonic regurgitation. Pericardium: Normal pericardium with no significant pericardial effusion. Aorta: Normal aortic root. IVC: Normal size and normal respiratory collapse consistent with normal right atrial pressure (<5 mmHg). CONCLUSIONS: Normal left ventricular systolic function. No focal wall motion abnormalities. Normal left ventricular size. Normal left ventricular wall thickness. Impaired diastolic relaxation Grade I. Ejection fraction is measured at 62 %. Ejection Fraction is visually estimated to be 60-65 %. Global Longitudinal Strain is -18 %. GLS is borderline. There is mild enlargement of left atrium. Mild mitral valve regurgitation. Mild tricuspid regurgitation. Mild pulmonic regurgitation. Normal sinus rhythm. PVCs. 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 With Strain Analysis. INDICATIONS: I49.3 Ventricular premature depolarization. MEASUREMENTS: 2D/MM Value Range Doppler ValueRange EF Mod BP 62 % [ 54 - 74 ] SAI Vmax 2.37cm2 [ 2.00 - 4.00 ] EF Teich MM 53 % [ 54 - 74 ] AV Mean PG 4mmHg Estimated EF 60-65 % AV Peak Valdo 1.25m/s [ 1.00 - 1.70 ] LV GLS -17.99 % AV Peak PG 6mmHg LVIDd 2D 4.23 cm [ 3.80 - 5.20 ] AV VTI 30.51cm LVIDd MM 4.77 cm [ 3.80 - 5.20 ] LVOT Diam 1.97cm [ 1.70 - 2.10 ] LVIDs 2D 2.99 cm [ 2.20 - 3.50 ] LVOT Peak Valdo 0.98m/s [ 0.70 - 1.10 ] LVIDs MM 3.48 cm [ 2.20 - 3.50 ] LVOT VTI 21.86cm LVPWd 2D 0.89 cm [ 0.60 - 0.90 ] MV E Peak Valdo 0.83m/s [ 0.60 - 1.30 ] LVPWd MM 0.68 cm [ 0.60 - 0.90 ] MV A Peak Valdo 0.93m/s [ 1.00 - 1.20 ] IVSd 2D 0.91 cm [ 0.60 - 0.90 ] MV Decel Time 244msec [ 104 - 258 ] IVSd MM 0.86 cm [ 0.60 - 0.90 ] PV Peak Valdo 0.85m/s [ 0.40 - 0.80 ] LA Dimension MM 3.05 cm [ 2.70 - 3.80 ] TR Peak Valdo 2.61m/s [ 1.00 - 2.80 ] AoR Diam MM 3.51 cm [ 2.70 - 3.70 ] TR Peak PG 27mmHg LA Volume 36.11 ml [ 22.00 - 52.00 ] RV S` 0.12m/s LA Volume Index 25 cc/m2 [ 16 - 28 ] Lateral E` 0.07m/s [ 0.10 - 0.15 ] ACS MM 1.77 cm Septal E` 0.07m/s [ 0.08 - 0.15 ] RA Volume 22.59 ml E` 0.07m/s E/E` 12 Tapse 1.99 cm [ 1.71 - 5.00 ] 2D/MM Value Range Doppler ValueRange - FINDINGS: Interpretation Site: Exam was interpreted at [facility]. Left Ventricle: Normal left ventricular systolic function. No focal wall motionabnormalities. Normal left ventricular size. Normal left ventricular wall thickness. Impaireddiastolic relaxation Grade I. Ejection fraction is measured at 62 %. EjectionFraction is visually estimated to be 60-65 %. Global Longitudinal Strain is -18 %. GLS isborderline. Right Ventricle: Normal right ventricular size. Normal right ventricular systolicfunction. Left Atrium: There is mild enlargement of left atrium. Right Atrium: The right atrium is normal in size. Atrial Septum: Normal atrial septum. Mitral Valve: Normal appearance of the mitral valve. Mild mitral valve regurgitation.There is no hemodynamically significant mitral stenosis by Doppler. Aortic Valve: No evidence of hemodynamically significant aortic stenosis by Doppler.Aortic cusps appear mildly sclerotic. Trileaflet aortic valve. Trace aortic valveregurgitation. Tricuspid Valve: Normal appearance of the tricuspid valve. Normal right ventricularsystolic pressure. Estimated peak RVSP is 30-35 mmHg. Mild tricuspid regurgitation. Pulmonic Valve: Normal appearance of the pulmonic valve. No pulmonic stenosis. Mildpulmonic regurgitation. Pericardium: Normal pericardium with no significant pericardial effusion. Aorta: Normal aortic root. IVC: Normal size and normal respiratory collapse consistent with normal rightatrial pressure (<5 mmHg). CONCLUSIONS: Normal left ventricular systolic function. No focal wall motionabnormalities. Normal left ventricular size. Normal left ventricular wall thickness. Impaireddiastolic relaxation Grade I. Ejection fraction is measured at 62 %. EjectionFraction is visually estimated to be 60-65 %. Global Longitudinal Strain is -18 %. GLS isborderline. There is mild enlargement of left atrium. Mild mitral valve regurgitation. Mild tricuspid regurgitation. Mild pulmonic regurgitation. Normal sinus rhythm. PVCs. 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 Fulton Date of interpretation: 05/20/25 Type of monitor : 48 hour Holter monitor Date of the study/Enrollment period: 05/13/2025 through 05/15/2025 Indication: palpitations Quality of the study: good Interpretation: underlying sinus rhythm with heart rate variability between 43 and 149 beats per minute with an average heart rate of 62 beats per minute. Frequent ventricular ectopy totaling 32,482 beats which is 18% ectopic burden. This consisted of 19 runs of ventricular tachycardia with the fastest run being at a rate of 149 beats per minute and longest run being for 3 beats. Ow-frequency supraventricular ectopy totaling 195 beats which is less than 1% ectopic burden. Total diagnostic time 1 day 23 hours and 56 minutes Five patient triggered events correlated sinus rhythm and ventricular ectopy Conclusions: Underlying sinus rhythm with heart rate variability as above. Average heart rate 62 beats per minute Frequent ventricular ectopy including several short ventricular runs. Overall 18% ventricular ectopic burden Symptom events correlated to sinus rhythm and ventricular ectopy Voice recognition software was used to complete this document, therefore, real estate teacher variances may occur. Patric Fulton MD, [facility] 05/20/25 Procedure Note Partic Fulton MD - 05/20/2025 AMBULATORY SURFACE HYDROLOGIST REPORT Patient Name: Francheska Márquez Date of : 1950 Requesting Physician: Dr. Fulton Date of interpretation: 05/20/25 Type of monitor : 48 hour Holter monitor Date of the study/Enrollment period: 05/13/2025 through 05/15/2025 Indication: palpitations Quality of the study: good Interpretation: underlying sinus rhythm with heart rate variabilitybetween 43 and 149 beats per minute with an average heart rate of 62 beatsper minute. Frequent ventricular ectopy totaling 32,482 beats which is 18% ectopicburden. This consisted of 19 runs of ventricular tachycardia with thefastest run being at a rate of 149 beats per minute and longest run beingfor 3 beats. Ow-frequency supraventricular ectopy totaling 195 beats which is less than1% ectopic burden. Total diagnostic time 1 day 23 hours and 56 minutes Five patient triggered events correlated sinus rhythm and ventricularectopy Conclusions: Underlying sinus rhythm with heart rate variability as above. Averageheart rate 62 beats per minute Frequent ventricular ectopy including several short ventricular runs.Overall 18% ventricular ectopic burden Symptom events correlated to sinus rhythm and ventricular ectopy Voice recognition software was used to complete this document, therefore,real estate teacher variances may occur. Patric Fulton MD, [facility] 05/20/25 Patric Fulton MD [facility] Final Result * Electrocardiogram Report (05/13/2025 11:58 AM CDT) us Patric Fulton MD ECG ORDERABLES Final Res ult * Dexa Axial Skeleton Bone Density 1 Or 2 Site (05/03/2025 10:21 AM CDT) Anatomical Region Laterality Modality Body N/A Mammography 05/03/2025 10:4 9 AM CDT Narrative 05/03/2025 10:50 AM CDT EXAM DESCRIPTION: DEXA AXIAL SKELETON BONE DENSITY 1 OR MORE SITES REASON FOR STUDY: 75 y/o year old F with given history of: Post menopausal status. History of glucocorticoid use and rheumatoid arthritis. Net Developer/Model: [employer] Horizon A (S/N [id number]) Facility LSC value of 0.022 for the AP spine, 0.027 for the femur, and 0.023 for the forearm. CLINICAL INFORMATION: Current height: 56.5 inches Maximum height: 60 inches Weight: 109.2 pounds Risk factors: Glucocorticoid use and rheumatoid arthritis. COMPARISON: None available FINDINGS: AP LUMBAR SPINE L1-L4: Total BMD is 1.120 g/cm2 T-score is 0.7 LEFT HIP: Total BMD is 0.807 g/cm2 T-score is -1.1 Femoral neck BMD is 0.600 g/cm2 T-score is -2.2 FRAX: 10 year risk for a major osteoporotic fracture is 28 %, 10 year risk for a hip fracture is 10 % Per National Osteoporosis Foundation guidelines, this patient does not meet the criteria for pharmacological treatment of patients with FRAX 10 year major osteoporotic fracture risk scores of = or greater than 20% or a 10 year probability of a hip fracture = or greater than 3%, to reduce fracture risk. Additional factors such as frequent falls are not represented in FRAX and warrant individual clinical judgment. IMPRESSION: 1. Low bone mass REFERENCE: Bone mineral density: T-Score: Normal (T-score above or = -1.0) Low bone mass (T-score between -1.0 and -2.5) replaces the previously used term osteopenia Osteoporosis (T-score = or below -2.5) Z-Score: Within the expected range for age (Z-score above -2.0) Below the expected range for age (Z-score is -2.0 or below) Please see below follow up recommendations. Medical evaluation for secondary causes of low bone mineral density may be appropriate. FRAX is a World Health Organization validated fracture risk assessment tool that calculates a person's 10 year probability of a major osteoporosis related fracture and hip fracture. According to the National Osteoporosis Foundation guidelines, postmenopausal women and men age 50 or older with low bone mass and a 10 year probability of a major osteoporosis related fracture = or greater than 20% or a 10 year probability of a hip fracture = or greater than 3% should be considered for pharmacological treatment for the prevention of osteoporosis. For further information, including treatment recommendations, please refer to the 2019 ISCD Official Positions (http://www.iscd.org) and the NOF's Clinician's Guide to Prevention and Treatment of Osteoporosis (http://www.nof.org/professionals/clinical-guidelines) THIS IS AN ELECTRONICALLY VERIFIED FINAL REPORT 05/03/2025 10:50 AM - Electronically signed by Camren Herrera M.D. TW: TW Report ID: [id number] Reading Location: [place] [address] Procedure Note Carmen Herrera MD - 05/03/2025 EXAM DESCRIPTION: DEXA AXIAL SKELETON BONE DENSITY 1 OR MORE SITES REASON FOR STUDY: 75 y/o year old F with given history of: Post menopausal status. History of glucocorticoid use and rheumatoidarthritis. Net Developer/Model: [employer] A (S/N [id number]) Facility LSC value of 0.022 for the AP spine, 0.027 for the femur, and0.023 for the forearm. CLINICAL INFORMATION: Current height: 56.5 inches Maximum height: 60 inches Weight: 109.2 pounds Risk factors: Glucocorticoid use and rheumatoid arthritis. COMPARISON: None available FINDINGS: AP LUMBAR SPINE L1-L4: Total BMD is 1.120 g/cm2 T-score is 0.7 LEFT HIP: Total BMD is 0.807 g/cm2 T-score is -1.1 Femoral neck BMD is 0.600 g/cm2 T-score is -2.2 FRAX: 10 year risk for a major osteoporotic fracture is 28 %, 10 year risk for ahip fracture is 10 % Per National Osteoporosis Foundation guidelines, this patient does notmeet the criteria for pharmacological treatment of patients with FRAX 10 yearmajor osteoporotic fracture risk scores of = or greater than 20% or a 10 year probability of a hip fracture = or greater than 3%, to reduce fracturerisk. Additional factors such as frequent falls are not represented in FRAX and warrant individual clinical judgment. IMPRESSION: 1. Low bone mass REFERENCE: Bone mineral density: T-Score: Normal (T-score above or = -1.0) Low bone mass (T-score between -1.0 and -2.5) replaces thepreviously used term osteopenia Osteoporosis (T-score = or below -2.5) Z-Score: Within the expected range for age (Z-score above -2.0) Below the expected range for age (Z-score is -2.0 or below) Please see below follow up recommendations. Medical evaluation forsecondary causes of low bone mineral density may be appropriate. FRAX is a World Health Organization validated fracture risk assessmenttool that calculates a person's 10 year probability of a major osteoporosisrelated fracture and hip fracture. According to the National OsteoporosisFoundation guidelines, postmenopausal women and men age 50 or older with low bonemass and a 10 year probability of a major osteoporosis related fracture = or greater than 20% or a 10 year probability of a hip fracture = or greaterthan 3% should be considered for pharmacological treatment for the preventionof osteoporosis. For further information, including treatment recommendations, please referto the 2019 ISCD Official Positions (http://www.iscd.org) and the NOF's Clinician's Guide to Prevention and Treatment of Osteoporosis (http://www.nof.org/professionals/clinical-guidelines) THIS IS AN ELECTRONICALLY VERIFIED FINAL REPORT 05/03/2025 10:50 AM - Electronically signed by Carmen Herrera M.D. TW: TW Report ID: [id number] Reading Location: [place] [address] Toño Vivas MD IMG DXA PROCEDURES Final Resu lt * SCREENING MAMMOGRAM BILATERAL W RAMIREZ (05/03/2025 10:06 AM CDT) Anatomical Region Laterality Modality Breast Bilateral Mammography Impressions 05/03/2025 10:32 AM CDT No evidence of malignancy in either breast. FINAL ASSESSMENT: BI-RADS Category 2: Benign. RECOMMENDATION: Recommend return for annual screening mammogram in 12 months. Narrative 05/03/2025 10:32 AM CDT EXAMINATION: BILATERAL SCREENING MAMMOGRAM COMPARISON: Multiple [...] Bilateral stable diffuse benign calcifications are seen. Toño Vivas MD IMG MAMMO PROCEDURES Final Re sult * SCAN - RADIOLOGY/IMAGING (04/14/2025) Anatomical Region Laterality Modality Other Toño Vivas MD Final Result * Colonoscopy (01/29/2019) Anatomical Region Laterality Modality Other Historical Provider ENDOSCOPY PROCEDURES Desirae l Result * Hepatitis C antibody (03/22/2016 9:00 AM CDT) SIGNAL TO CUT-OFF 0.03 <1.00 [facility] RES[facility] Comment: Test performed at [facility] [address] [place] [address] Director: RACHEL LEONE DO,MPH Hep C Ab NON-REACT ELEANOR NON-REACT ELEANOR [facility] RESULTS 03/22/2016 9:00 AM CDT [facility] MICROBIOLOGY - GENERAL ORDERABLES Final Result [facility]OR[facility] RESULTS from Last 3 Months or Most Recently Relevant to Health Maintenance Insurance [employer] ADVANTAGE CHOICE PPO [employer] CHO[employer] PPO Member Subscriber Plan / Payer ( fective 2022-Present) Name:Tiffani Márquezsergio Moyer Relation to Subscriber:Self Name:Tiffani Márquezureen Comfort Payer ID:[id number] (NAIC) Type:MEDICARE RISK OTHER Address: [address] [place] [id number] [employer] CHOICE PPO Care Teams Packing Floor Worker Relationship Specialty Start Date End Date Toño Vivas MD PCP - General Family Medicine 07/24/23
--- OUTSIDE RECORDS SUMMARY | 2025-07-08 02:16 | XMS_ITS | Encounter Summary ---
Author Organization [facility] Address [address] [place] [address] Care Team Providers Care Appliance Installer Name Role Phone Girish Breen MD Primary Care Provider [phone] Encounter Details Date Type Department Care Team (Latest Contact Info) Description 09/05/2000 Outpatient Historical HIS [facility] RAFAEL Padilla, Salvador Harry MD [address] [place] [id number] Persistent vomiting (Primary Dx) Social History Tobacco Use Types Packs/Day Years Used Date Smoking Tobacco: Never Assessed Comments Unknown Sex and Gender Information Value Date Recorded Sex Assigned at Not on file 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
--- OUTSIDE RECORDS SUMMARY | 2025-07-08 02:16 | XMS_ITS | Encounter Summary ---
Author Organization [employer] [facility] Address [address] [place] [address] Care Team Providers Care Batteryman Name Role Phone Girish Breen MD Primary Care Provider [phone] Encounter Details Date Type Department Care Team (Late st Contact Info) Description 04/22/1999 Outpatient Historical [facility] Salvador Padilla MD [address] [place] [address] [place] [id number] Internal hemorrhoids without mention of complication (Primary Dx) Social History Tobacco Use Types Packs/Day Years Used Date Smoking Tobacco: Never Assessed Comments Unknown Sex and Gender Information Value Date Recorded Sex Assigned at Not on file 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
--- OUTSIDE RECORDS SUMMARY | 2025-07-08 02:16 | XMS_ITS | Encounter Summary ---
Author Organization [facility] Address [address] [place] [address] Care Team Providers Care Perch Mender Name Role Phone Girish Breen MD Primary Care Provider [phone] Encounter Details Date Type Department Care Team (Latest Contact Info) Description 01/05/2000 Outpatient Historical HIS [facility] RAFAEL Herbert, [place] [address] [facility] [place] [phone] Lump or mass in breast (Primary Dx) Social History Tobacco Use Types Packs/Day Years Used Date Smoking Tobacco: Never Assessed Comments Unknown Sex and Gender Information Value Date Recorded Sex Assigned at Not on file Legal Sex 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
--- OUTSIDE RECORDS SUMMARY | 2025-07-08 02:16 | XMS_ITS | Encounter Summary ---
Author Organization [facility] Address 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
--- OUTSIDE RECORDS SUMMARY | 2025-07-08 02:16 | XMS_ITS | Encounter Summary ---
Author Organization [employer] [place] Address 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
[2025-07-08 09:05] LABS: Hematocrit 47.2 % (37.0-47.0); Hemoglobin 15.4 g/dL (12.0-15.0); Immature Granulocyte Percent A 0.2 % (0-0.5); Lymphocytes Absolute Auto 1.49 K/mm3 (0.9-3.2); Mean Corpuscular HGB Conc 32.6 g/dl (32-36); Mean Corpuscular Hemoglobin 32.0 pg (26-34); Mean Corpuscular Volume 97.9 fl (80-100); Nucleated Red Blood Cells Absolute Auto 0.000 K/mm3 (0.0-0.012); Nucleated Red Blood Cells Perc 0.0 % (0.0-0.2); Platelet Count Result 213 k/mm3 (150-375); Red Blood Count 4.82 M/mm3 (4.2-5.4); White Blood Count 5.0 K/mm3 (4.5-10.0)
--- NOTE | 2025-07-08 09:35 | WPDHPUPDATE1 ---
History and Physical Update Update Date/Time: 07/08/25 09:35 History and Physical has been reviewed, including an updated exam of the patient. There are NO changes in the patient's condition. Risks, benefits, and alternatives have been discussed and questions answered. Patient agrees to proceed with procedure.
--- NOTE | 2025-07-08 09:35 | WPDMODSED ---
Moderate Sedation Note-Pt Data Patient Data Allergies Allergy/AdvReac Type Severity Reaction Status Date / Time infliximab (From Remicade) Allergy Mild Unknown Verified 04/16/25 07:52 tramadol Allergy Mild Unknown Verified 04/16/25 07:52 Home Medications ?Medication ?Instructions ?Recorded ?Confirmed ?Type aspirin 81 mg tablet 81 mg PO DAILY 04/16/25 07/07/25 History atorvastatin 40 mg tablet (Lipitor) 40 mg PO DAILY 04/16/25 07/07/25 History calcium 600 mg PO DAILY 04/16/25 07/07/25 History cholecalciferol (vitamin D3) 50 50 mcg PO DAILY 04/16/25 07/07/25 History mcg (2,000 unit) capsule folic acid 400 mcg tablet 1 mg PO DAILY 04/16/25 07/07/25 History lisinopril 5 mg tablet 5 mg PO DAILY 04/16/25 07/07/25 History mecobalamin (vitamin B12) 1,000 1,000 mcg PO DAILY 04/16/25 04/16/25 History mcg lozenges metoprolol succinate 25 mg 25 mg PO DAILY 04/16/25 07/07/25 History tablet,extended release 24 hr multivitamin (Daily Multi-Vitamin 1 tablet PO DAILY 04/16/25 07/07/25 History tablet) nitroglycerin 0.4 mg sublingual 0.4 mg sublingual Q5M PRN chest 04/16/25 07/07/25 History tablet pain pantoprazole 40 mg tablet,delayed 40 mg PO QAM 04/16/25 07/07/25 History release (Protonix) rimegepant 75 mg disintegrating 75 mg PO ONCE PRN migraine headache 04/16/25 07/07/25 History tablet (Nurtec ODT) Current Medications: Active Medications Sodium Chloride (Normal Saline Iv) 500 mls @ 100 mls/hr IV CONT .Q5H EMMIE Sedation/Anesthesia: No previous sedation/anesthesia problems (including family history). [facility] Surgical History Surgical History (Updated 04/16/25 @ 07:56 by Jacklyn Horowitz CMA) History of hysterectomy Family History Family History (Updated 04/16/25 @ 07:55 by Jacklyn Horowitz CMA) Father Cerebrovascular accident Social History Social History (Updated 04/16/25 @ 07:55 by Kiana Del Rio CMA) Smoking status: Never smoker Second hand tobacco smoke exposure: No Alcohol intake: never Substance use: never Substance use type: does not use Lack of Transportation: No Lack of Food: Never True Current Housing: I Have Housing Concerned About Future Housing: No Difficulty Paying Gas/Electric Bills: No Difficulty Paying for Meds: No Currently Unemployed: No Education: Bachelor's Degree Difficulty w/ Childcare or Family Care: No Living arrangements: with family Spiritual care concerns: No Mod Sed Physical Exam Physical Exam Pre Procedural Exam: Normal: Lungs, Heart Size, Heart Rate and Heart Rhythm Hours since solid foods: 12 Hours since liquid intake: 12 Mallampati Classification: class II Internal Medicine - PN: Obj Da Vital Signs Vital Signs: Vital Signs - 24 hr 07/08/25 08:54 Temperature 36.2 C L Pulse Rate 63 Respiratory Rate 13 Blood Pressure 146/74 H Pulse Oximetry 99 Oxygen Delivery Room Air Meds/Results Medications: Active Medications Generic Name Dose Route Start Last Admin Trade Name Freq PRN Reason Stop Dose Admin Sodium Chloride 500 mls @ 100 mls/hr 07/08/25 08:30 Normal Saline Iv IV CONT .Q5H EMMIE Labs 07/08/25 08:59 07/08/25 08:59 Labs: Laboratory Results - last 24 hr 07/08/25 08:59 WBC 5.0 RBC 4.82 Hgb 15.4 H Hct 47.2 H MCV 97.9 MCH 32.0 MCHC 32.6 RDW 13.0 Plt Count 213 MPV 10.3 Immature Gran % (Auto) 0.2 Neut % (Auto) 53.9 Lymph % (Auto) 29.9 [place] % (Auto) 11.8 H Eos % (Auto) 2.8 Baso % (Auto) 1.4 H Lymph # (Auto) 1.49 [place] # (Auto) 0.6 Eos # (Auto) 0.1 Baso # (Auto) 0.1 Abs Immat Gran (auto) 0.01 Absolute Neuts (auto) 2.7 Absolute Nucleated RBC 0.000 Nucleated RBC % 0.0 ASA Classification/Sedation ASA Classification/Sedation ASA Class: III Emergent: No Risks: Risks, benefits and alternatives explained and patient/family accepted plan for sedation. Patient re-evaluated immediately prior to sedation.
[2025-07-08 09:42] LABS: Anion Gap 7 mmol/L (4-12); Blood Urea Nitrogen 31 mg/dL (7-17); Calcium 9.7 mg/dL (8.4-10.2); Carbon Dioxide 31 mmol/L (22-30); Chloride 102 mmol/L (98-107); Estimated Glomerular Filt Rate > 60; Glucose 91 mg/dL (65-110); Potassium 4.2 mmol/L (3.4-5.0); Sodium 140 mmol/L (137-145)
--- NOTE | 2025-07-08 10:21 | WPDCARDPROC ---
Cardiac Cath Procedure Note Date of procedure:: 07/08/25 Performing physician:: CATHETERIZATION LABORATORY REPORT Procedure Date: 1950 Referring Physician: Dr. Bronson Anesthesia: Versed and Fentanyl were ordered and given in my presence at 0959, procedure ended at 1016. Supervision of nurse, Jaz Robertson monitored moderate sedation with 2mg Versed and 50mcg Fentanyl was provided for 17 minutes. Pre-op Diagnosis: premature ventricular contractions Post-op Diagnosis: Premature ventricular contractions Procedure(s): Left heart catheterization with coronary angiography Access Site: Right radial artery Brief History and Clinical Indications: 75-year-old woman with hypertension hyperlipidemia complain of palpitations for which Holter monitor showed elevated PVC burden as well as an SVT along with the stress test and a normal myocardial perfusion during Lexiscan however abnormal EKG portion for which a cardiac catheterization with possible PCI have been recommended. All risks, benefits and alternatives to left heart catheterization with or without percutaneous coronary intervention was discussed at length with the patient. Risk of complications including but not limited to bleeding, infection, arrhythmia, stroke, worsening kidney function, blood loss, groin hematoma, limb loss, emergency coronary artery bypass grafting, and even were discussed with the patient and all questions were answered. The patient understood and wished to proceed. Time out called, patient name, date of , medical record number, allergies, procedure performed, identify Equipment Cleaner And Tester, patient and staff member concurred with accurate data, procedure carried on. Findings: LEFT HEART CATHETERIZATION FINDINGS: 1. Left main: The left main coronary artery is widely patent without any significant obstructive disease. 2. Left anterior descending: The LAD and the diagonal branches have mild luminal irregularities without any significant obstructive angiographic disease. During the initial injection, there was JOE 0 flow in the mid LAD that on subsequent injections spontaneously resolved with slow flow. IC nitroglycerin 200 mcg was delivered and repeat angiography demonstrated normal flow and no obstructive disease. 3. Left circumflex: The left circumflex artery and the main marginal branches have mild luminal irregularities without any significant obstructive angiographic disease. 4. Right coronary artery: The RCA is a large dominant vessel that is angiographically free of stenosis. 5. Left ventricle: A. End-diastolic pressure 21 mmHg. B. LV gram deferred. C. No significant gradient across aortic valve on catheter pullback. 6. Opening AO pressure 106/66 and closing AO pressure 101/75 Description of Procedure: Informed consent signed and placed in the chart. Patient transferred to center medical and lab director room. Prepped and draped in usual sterile fashion. 2% lidocaine injected subcutaneously in right wrist area. 22-gauge venipuncture catheter used to access the right radial artery with the Seldinger technique. 6-FR slender sheath placed in right radial artery. Nitroglycerin 200mcg, Verapamil 2.5mg, and Heparin 5000U was given intraarterial through the sheath. J wire advanced under fluoroscopy. 5F diagnostic TIG crossed the aortic valve for LVEDP and aortic valve gradients. After pullback, the catheter was used to engage the right coronary artery. The TIG was then swiched out for JL3.5 diagnostic catheter to engage Left Main Coronary Artery. Multiple orthogonal angiogram obtained and reviewed. IC nitroglycerin was delievered and final angiograms performed and reviewed. Hemostasis was achieved by application of TR band. Assessment: Microvascular coronary disease Post Operative Condition: Stable No significant blood loss Disposition: Home Plan: Consider DAPT and long acting nitrates +/- CCB in addition to the BB that she is already on. Continue aggressive medical therapy and risk factor modification. Sotero Vick Inter[facility] Cardiology
[2025-07-08] MEDS: SODIUM CHLORIDE 0.9% IV 1,000 ML 125 ML IV CONT (10:52)
== END 2025-07-08 14:37 | disposition home or self-care (01) ==
PROVIDERS: PCP Family Medicine; Visit Provider Internal Medicine
PROC: 4A023N7 Measurement of Cardiac Sampling and Pressure, Left Heart, Percutaneous Approach (ICD-10-PCS; CPT 93452; principal; 2025-07-08 10:00)
DX: I49.3 Ventricular premature depolarization (principal); I47.10 Supraventricular tachycardia, unspecified; I25.85 Chronic coronary microvascular dysfunction; R94.31 Abnormal electrocardiogram [ECG] [EKG]; R00.2 Palpitations; I10 Essential (primary) hypertension; E78.5 Hyperlipidemia, unspecified
CPT/HCPCS: 36415; 80048; 85025; 93458; J1644; J2003; J2250; J3010; J7040